=== PATIENT | male | born 1960 | race Caucasian/White ===

== ENCOUNTER 2017-01-08 10:30 | Emergency (ER) | payer OTHER ==
--- NOTE | ~2017-01-08 | EKG ---
PATIENT: THIAGO GIBSON UNIT #: [id number] Ventricular Rate: 84 BPM Atrial Rate: 84 BPM P-R Interval: 130 ms QRS Duration: 124 ms Q-T Interval: 410 ms QTC Calculation(Bezet): 484 ms P [place]: 39 degrees Calculated R [place]: 23 degrees Calculated T [place]: 17 degrees Diagnosis Line: Sinus rhythm with Premature atrial complexes Diagnosis Line: Right bundle branch block Diagnosis Line: Abnormal ECG Diagnosis Line: When compared with ECG of 13-DEC-2016 17:22, Diagnosis Line: Premature atrial complexes are now Present Diagnosis Line: Confirmed by MELANI ANGEL MD ([id number]) on Diagnosis Line: 01/15/2017 12:19:40 PM INTERPRETING MD: ADELINE
[~2017-01-08 10:30] MED LIST: ACETAMINOPHEN PO; AMOXICILLIN500 M1; AMOXICILLIN500 M1 PO; ASPIR-TRIN325 MG PO; ASPIRIN PO; ASPIRIN81 MG PO; AUGMENTIN PO; B-1100 MG PO; BACTRIM DS TABL1 TA2; BAYER ASPIRIN325 M1 PO; BENADRYL25 MG PO; BENTYL20 M1 PO; BENZONATATE PO; CARAFATE1 G PO; CATAPRES0.1 MG PO; CIPRO PO; CLONIDINE PO; COREG6.25 MG PO; FAMOTIDINE PO; FLEXERIL PO; FOLIC ACID1 MG PO; HYDROCHLOROTHIA25 MG PO; HYDROCODON-ACE1 EAC7 PO; IBUPROFEN800 MG PO; KETOPROFEN PO; LANTUS100 U/ML SQ; LANTUS100 UNITS/ SUBQ; LEVEMIR FL100 UNIT/1 SUBQ; LEVEMIR SUBQ; LEVEMIR100 U/ML; LEVEMIR100 U/ML SUBQ; LEVEMIR100 UNITS/ SUBQ; LIBRIUM PO; LIBRIUM25 MG PO; LISINOPRIL5 MG PO; LORTAB 10/500 T1 TAB PO; LORTAB 101 TAB 10/5 PO; LORTAB 5-325 M1 EACH PO; LORTAB 5/500 TA1 TA1 PO; LORTAB 5/500 TA1 TA2 PO; LORTAB 7.5-5001 TAB PO; LORTAB 7.51 TAB 7.5/ PO; MEDROL4 MG/DOSE- PO; MULTI VITAMIN1 EACH PO; MULTI-VITAMIN W1 TA1 PO; MULTI-VITAMIN1 EAC1 PO; MULTIVITAMIN1 UDCAP PO; NEXIUM PO; NICOTINE T1 PATCH .2 TOP; NICOTINE TRANSD14 MG EXT; NICOTINE TRANSD14 MG TOP; NORCO 10-325 TA1 TAB PO; NORCO 10/3251 TAB PO; NORVASC10 MG PO; NOVOLIN R100 UNITS/; NOVOLOG100 U/M1; NOVOLOG100 U/ML SUBQ; NOVOLOG100 UNITS/; PEPCID40 MG PO; PHENERGAN PO; PHENERGAN25 M1 PO; PHENERGAN25 MG PO; PRILOSEC PO; PRILOSEC20 MG PO; PROTONIX; PROTONIX PO; PROTONIX40 MG/BLIS PO; REGLAN; ROBAXIN 750750 M1 PO; SOLOSTAR INSULIN SUBQ; THERAPEUTIC M1 UDTA1 PO; THIAMINE HCL100 MG PO; VICODIN 5/500 T1 TAB PO; VIOKASE PO; VITAMIN D50000 UNIT PO; ZANTAC PO; ZITHROMAX PO; [UNRECOGNIZED DRUG - REMARK]
== END 2017-01-08 11:45 | disposition home or self-care (01) ==
LOC: SED 10:30
DX: I10 Essential (primary) hypertension (principal); F41.9 Anxiety disorder, unspecified; B19.20 Unspecified viral hepatitis C without hepatic coma; Z90.49 Acquired absence of other specified parts of digestive tract; F17.210 Nicotine dependence, cigarettes, uncomplicated; Z79.899 Other long term (current) drug therapy; Z88.8 Allergy status to other drugs, medicaments and biological substances
CPT/HCPCS: 93005; 99283

== ENCOUNTER 2017-01-22 15:49 | Inpatient (IN) | payer OTHER ==
--- NOTE | ~2017-01-22 | HP ---
Unit #: [id number] #: [id number] Patient: RACIEL GIBSON [id number] [address] [address] [id number] I MR#: [id number] NAME: RACIEL GIBSON ROOM: 327 Age: 56 Sex: M Admission Date: 01/22/2017 : 1960 Attending Physician: Haja Rasmussen M.D. Primary Care Physician: Raciel Desai M.D. HISTORY AND PHYSICAL CHIEF COMPLAINT Abdominal pain. HISTORY OF PRESENT ILLNESS Mr. Raciel Gibson is a 56-year-old male with significant past medical history of chronic pancreatitis, diabetes mellitus, hypertension, history of alcohol abuse, tobacco abuse. Patient came because of abdominal pain that started on Saturday and since then, he has not been able to eat. He was nauseous, was having some dry heaves but no vomiting. He came to ER for further evaluation and was admitted for possible pancreatitis and to rule out any malignancy. The patient was admitted in the hospital in May 2016. At that time, patient was advised to followup for pancreatic questionable mass. The patient had biopsy done in [facility]. I am not sure when and we will try to get the records. According to patient, he has not lost enough weight but per our records, he weighed 163 in June 2016 and now it is 153. The patient complains of nausea. He complains of abdominal pain, level of 8/10. According to him, it does hurt in the chest area too. He does not complain of fever but he had some chills and shaky a day before. No history of appetite loss, according to patient and no history of weight loss, according to patient. PAST MEDICAL HISTORY 1. Diabetes mellitus. 2. Hypertension. 3. Tobacco abuse. 4. Alcohol abuse history. 5. Chronic pancreatitis. HOME MEDICATIONS 1. NovoLog. 2. Protonix 40 mg daily. 3. Aspirin 325 mg daily. 4. Hydrochlorothiazide 25 mg daily. 5. Lantus 20 units subcutaneous at bedtime. 6. Norvasc 10 mg daily. 7. Robaxin 750 mg t.i.d. p.r.n. 8. Gabapentin 400 mg three times a day. SOCIAL HISTORY The patient does smoke and continue to smoke. Has been smoking for long period of time. He does have a history of heavy drinking in the past. According to him, he has cut down a lot. Last drink was two beers about three weeks ago. No history of alcohol or drug abuse. Unit #: [id number] #: [id number] Patient: RACIEL GIBSON FAMILY HISTORY The patient does have significant family history of malignancy. Mother had breast cancer and later on some lymph node involvement. Father had malignancy, although details are not known. According to patient, father had three malignancies. Sister with malignancy, again details are not known. REVIEW OF SYSTEMS As per history of presenting illness. PHYSICAL EXAMINATION GENERAL: The patient is lying in bed, does not seem to be in any respiratory distress. VITAL SIGNS: Blood pressure is 168/93, respiratory rate 18, pulse 96, temperature 98.7. HEENT: Head is normocephalic. Pale conjunctiva. NECK: Supple. CHEST: Fair air entry, decreased at the bases. CARDIOVASCULAR: S1, S2 positive. Regular rhythm. ABDOMEN: Tenderness is present in the epigastric area and right upper quadrant. Bowel sounds are positive. EXTREMITIES: Negative edema. CENTRAL NERVOUS SYSTEM: The patient is awake, alert, oriented x3. No focal neurological deficit. DIAGNOSTIC STUDIES LABORATORY: WBC 7.8, hemoglobin 14.8, hematocrit 42.4, and platelet count of 104,000. Sodium 130, potassium 3.3, chloride 91, BUN 6, creatinine 0.6. AST 90, ALT 55, alkaline phosphatase 438, total bilirubin 2.3. TSH is 1.12. Blood sugar 143. IMAGING: CT scan of the abdomen and pelvis done: Multiple liver lesions, possible metastatic disease. ASSESSMENT The patient is being admitted to telemetry unit with: 1. Abdominal pain. 2. Acute on chronic pancreatitis. 3. Multiple liver lesions, possible metastatic disease. 4. Hyponatremia. 5. Diabetes mellitus type 2. 6. History of alcohol abuse. 7. Hypertension. 8. Tobacco abuse. PLAN 1. Admit to telemetry unit. 2. Dr. White has been consulted. 3. Records from [facility] is being obtained. 4. IV fluids are being started. 5. Dr. Delcid has been consulted for hyponatremia. 6. Blood pressure medications are being adjusted because of uncontrolled hypertension. 7. Fluid restriction is being done to 1500 mL a day. 8. Please refer to progress note for further orders. Unit #: [id number] #: [id number] Patient: RACIEL GIBSON Dictated by Vivien Lawton TD: 01/23/2017 11:58 JOB #: [id number] HISTORY AND PHYSICAL X Sona Grey MD HISTORY AND PHYSICAL
--- NOTE | ~2017-01-22 | DS ---
Unit #: [id number] #: [id number] Patient: RACIEL GIBSON [id number] [address] [address] [id number] I MR#: [id number] NAME: RACIEL GIBSON ROOM: 327 Age: 56 Sex: M Admission Date: 01/22/2017 : 1960 Discharge Date: 01/30/2017 Attending Physician: Haja Rasmussen M.D. Primary Care Physician: Raciel Desai M.D. DISCHARGE SUMMARY DISCHARGE DIAGNOSES 1. Acute on chronic pancreatitis, stable to be discharged: Status post evaluation per GI. 2. Multiple liver lesions, questionable metastatic disease: Status post biopsy, status post evaluation per Hem/Onc. Stable to be discharged with outpatient followup with Hem/Onc tomorrow, on January 31, 2017. The appointment has already been set up. 3. History of hypertension, stable. 4. Diabetes, stable. 5. History of alcohol abuse. 6. Hyponatremia. DISCHARGE MEDICATIONS 1. Gabapentin 400 mg t.i.d. 2. Norvasc 10 mg daily. 3. Toprol XL 50 mg p.o. daily. 4. Sliding scale insulin. 5. Lantus 15 units subcu q. h.s. 6. Aspirin 325 p.o. daily which is currently on hold secondary to liver biopsy. Restart per primary care physician and Hematology after seen as an outpatient. 7. Protonix 40 mg daily. 8. Robaxin 750 mg p.o. t.i.d. 9. Augmentin 875 p.o. b.i.d. for five more days. DISPOSITION Going home. Outpatient followup with primary care physician in two to three days. Outpatient followup with Hem/Onc which is apparently scheduled for January 31, 2017. Also, outpatient followup with JULIA Interiano. CONSULTS DURING THIS HOSPITAL STAY 1. Dr. White - GI. 2. Dr. Baldemar Delcid - Nephrology. 3. Dr. Garcia - Hem/Onc. LABS, DIAGNOSTICS AND PROCEDURES DURING THIS HOSPITAL STAY Liver biopsy from January 29, 2017 - currently pending. CT of the chest without contrast - interval enlargement of the lobulated oval pulmonary nodule in the medial left lower lobe, now measuring 1.8 x 1.2 cm with adjacent patchy infiltrate along its posterior margin Unit #: [id number] #: [id number] Patient: RACIEL GIBSON suspicious for lung carcinoma. Questionable metastatic disease with mediastinal adenopathy. Biggest lesion 1.8 x 2.3 cm. Extensive hepatic lesion/metastases. Stable 3 mm nodule of the posterolateral right lower lobe. Could be an incidental granuloma. Enlargement of the pancreatic head, questionable pancreatitis versus underlying pancreatic mass. MRI of the abdomen - innumerable lesions throughout the enlarged liver indicating hepatic metastatic disease, diffuse osseous metastatic disease in the axial skeleton. Mass-like area of inflammation in one of the hepatic head and uncinate process measuring up to 5.3 cm concerning for a primary metastatic neoplasm. 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 Superior mesenteric vein confluence and occlusion of the central superior mesenteric vein and splenic vein. Extensive gastric collaterals are noted. HISTORY OF PRESENT HOSPITAL STAY Please refer to H and P done by my colleague for initial presentation on this gentleman. ACTIVE PROBLEMS AND DIAGNOSES Acute on chronic pancreatitis, now with pancreatic mass suspicious for pancreatic carcinoma with mets to the liver, status post liver lesion biopsy from yesterday: Follow up with the biopsy result. Follow up with hematology/oncology, Dr. Garcia. Appointment has been scheduled. Currently, patient tolerates p.o. diet. Stable to be discharged from GI and Hem/Onc standpoint. Liver lesions as above. Hypertension: Stable. Diabetes: Stable. History of alcohol abuse: Patient was counseled on several occasions of the importance of quitting alcohol. Lung mass, questionable mets versus primary: Again, follow up with Dr. Garcia as an outpatient. Follow up on liver lesion biopsies. Hyponatremia: Discharge date sodium 132, status post evaluation per nephrology. Continue fluid restriction. Discharge meds as above. Disposition as above. Dictated by... Haja Rasmussen M.D. PREETHI/lyndsey TD: 01/31/2017 07:30 JOB #: [id number] Unit #: [id number] #: [id number] Patient: RACIEL GIBSON DISCHARGE SUMMARY X Haja Rasmussen MD DISCHARGE SUMMARY
--- NOTE | ~2017-01-22 | CT2 ---
[facility] A Service of [facility] RADIOLOGY TEXT RESULTS PATIENT: RACIEL GIBSON LOCATION: A 327-01 : 60 UNIT #: [id number] AGE: [address]: Haja Rasmussen MD SEX: M ORDER DR: [id number] [address] [address] [id number] E MR#: [id number] Acc #: [id number] NAME: RACIEL GIBSON : 1960 SEX: M STUDY DATE/TIME: 01/22/2017 15:22 UNIT: SED ROOM: STUDY DESCRIPTION: CT Abd and Pelv W Cont Attending Physician: Harvinder Leyva M.D. Ordering Physician: Harvinder Leyva M.D. Primary Care Physician: Raciel Desai M.D. MEDICAL IMAGING REPORT This report is preliminary unless electronic signature is present. EXAM CT abdomen and pelvis with contrast, 01/22/2017 HISTORY Upper abdomen pain. Pancreatitis history. Upper abdomen pain, nausea and no appetite for 2 days. No bowel movement since yesterday. TECHNIQUE CT of the abdomen and pelvis performed with intravenous administration 100 mL Isovue 370. This CT exam was performed with one or more of the following radiation dose reduction techniques: automatic exposure control, adjustment of mA and/or kV according to patient size, and iterative reconstruction. COMPARISON CT examination 05/30/2016 and comparison MRI examination 07/26/2016 FINDINGS The lung bases show underlying emphysema. No acute pulmonary disease at the lung bases. No pleural effusions. Inferior heart pericardium unremarkable. The liver is abnormal. There are multiple too numerous to count rounded areas of hypodensity within the liver which are new compared to prior CT and MRI. Some of these may show some very subtle peripheral enhancement. They do not have a simple cystic interior. Largest of these measures on the order of about 12 mm. They are strongly concerning for extensive metastatic disease throughout the liver. The appearance is nonspecific. Permeative non neoplastic process could be considered. Primary multifocal hepatocellular carcinoma might be considered but I strongly favor metastatic disease. Patient is status post prior biliary intervention and there is chronic pneumobilia in the atrophic left hepatic lobe. The right hepatic lobe shows no biliary ductal dilatation. The [facility] A Service of [facility] RADIOLOGY TEXT RESULTS PATIENT: RACIEL GIBSON LOCATION: C3A 327-01 [facility] #: [id number] : 60 UNIT #: [id number] AGE: [address]: Haja Rasmussen MD SEX: M ORDER DR: patient is status post cholecystectomy. The liver appears enlarged compared to prior examination. It currently measures about 18.9 cm in craniocaudal extent, previously 16.6 cm. Spleen unremarkable. Pancreas is abnormal. Pancreatic tail appears relatively normal. There is generalized ill-defined parenchyma in region of pancreatic head and uncinate process. There are multiple coarse calcifications in this region as on prior study consistent with sequelae of chronic pancreatitis. There is haziness in the fat adjacent to the pancreatic head and uncinate process. Similar appearance on prior examination. Similar appearance on prior MRI. The appearance raises the possibility of acute on chronic pancreatitis. Certainly the haziness in the peripancreatic fat could be to some extent chronic in time course. There is no intra or peripancreatic fluid collection. There is stable mild prominence of the main pancreatic duct measuring up to about 3 mm in diameter. At the level of the uncinate process. There is a 1.2 cm hypodense focus. This was present on prior CT examination when it measured about 1.5 cm. It is of unclear etiology and significance. Sequelae of chronic pancreatitis could be considered. Edema related to the presumed acute on chronic pancreatitis could be considered. Small pancreatic neoplasm, particularly in light of the extensive hepatic lesions, is a consideration as well. The adrenal glands are unremarkable. Progression of left renal atrophy compared to the prior study, perhaps related to severe atherosclerotic disease in the proximal left renal artery. Left kidney otherwise unremarkable. The right kidney is normal. CT PELVIS: No inguinal adenopathy. Urinary bladder unremarkable. Prostate unremarkable. No pelvic adenopathy. There are small lymph nodes adjacent to the pancreatic head and uncinate process. These are slightly more conspicuous than on the prior examination. They are indeterminate and may be of an infectious or neoplastic nature. Attention at followup is recommended. The distal esophagus unremarkable. There are prominent gastric varices, more pronounced than on prior study. This is felt secondary to chronic occlusion of the splenic vein and critical narrowing if not occlusion of the splenoportal confluence. There are prominent collateral veins in the upper abdomen. The duodenum shows questionable mild mural thickening in the third portion of the duodenum adjacent to the pancreas. This may be a reflection of mild sympathetic inflammation due to the adjacent presumed pancreatitis. No pathologic duodenal dilatation. No gastric outlet obstruction. The remainder of small bowel is unremarkable. Appendix normal. Colon unremarkable. No colonic mass lesion is suggested. Atherosclerotic arterial calcifications. No aneurysm. The mesenteric vessels are patent. As noted, there is severe atherosclerotic disease in the proximal left renal artery. The bony structures show a stable central compression deformity at the L1 vertebral body without loss of height posteriorly. There is some mild anterior impression which is stable. No acute or aggressive-appearing bony abnormality. IMPRESSION [facility] A Service of [facility] RADIOLOGY TEXT RESULTS PATIENT: RACIEL GIBSON LOCATION: [facility] 327-01 : 60 UNIT #: [id number] AGE: [address]: Haja Rasmussen MD SEX: M ORDER DR: 1. This is an abnormal examination. Please see the complete dictation above for full details. Compared to most recent CT examination and MRI from May and July 2016 respectively, there are innumerable small hypodense lesions in the liver, some of which may have a subtle peripheral enhancement. They measure up to approximately 12 mm in diameter. All portions of the liver are involved. The appearance is strongly concerning for metastatic disease. Multifocal primary parasellar carcinoma not excluded but felt less likely. Non neoplastic permeative processes felt less likely. Given the extensive nature of these lesions, I believe they are probably amenable to characterization with percutaneous sampling despite their small size. 2. Pancreas is abnormal. There is chronic ill-defined anatomy of the pancreatic head and uncinate process with coarse calcifications. Similar appearance on prior study. This component of the pancreas appearance is felt to reflect chronic pancreatitis. There is some haziness and stranding in the fat adjacent to the pancreatic head and uncinate process. While some component may be chronic in time course the appearance suggests acute on chronic pancreatitis. Similar constellation of findings on prior CT and MRI. There is no peripancreatic or intrapancreatic fluid collection. Stable mild main pancreatic ductal prominence. 3. Indeterminate 1.2 cm hypodense focus in the uncinate process of pancreas. This was described on prior CT examination. It is marginally decreased in size from prior CT examination. It is indeterminate in appearance and the differential diagnosis could include sequelae of prior pancreatitis, recurrent edema due to acute component of pancreatitis, or relatively hypovascular pancreatic neoplasm. Hypovascular pancreatic neoplasm is a particular concern given the extensive hepatic abnormality. 4. 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 Resulting large upper abdominal varices and collateral veins between the spleen, central portal vein, and mesenteric veins. Similar appearance on prior study. 5. The third portion of duodenum may show some mild wall thickening. This is presumed secondary to adjacent pancreatitis. No gastric outlet obstruction and no focal duodenal abnormality. 6. Remainder of alimentary canal including appendix unremarkable. 7. Progression of moderate to marked left renal atrophy. This is favored to be a consequence of severe atherosclerotic disease and vascular insufficiency at level of the proximal left renal artery. 8. Emphysema. 9. Note is made of hepatic enlargement compared to prior examination. This may be a consequence of the extensive presumed metastatic tumor burden within the liver. 10. Post cholecystectomy with stable appearance of left hepatic lobe atrophy and pneumobilia indicating prior biliary ductal STS. [facility] A Service of [facility] RADIOLOGY TEXT RESULTS PATIENT: RACIEL GIBSON LOCATION: A 327-01 : 60 UNIT #: [id number] AGE: [address]: Haja Rasumssen MD SEX: M ORDER DR: instrumentation. Dictated by... Shelton Whittington M.D. THIS IS AN ELECTRONICALLY VERIFIED REPORT Shelton Whittington M.D. at 01/24/2017 4:25 PM ANAMARIA/dylon TD: 01/23/2017 03:30 JOB #: [id number] MEDICAL IMAGING REPORT
--- NOTE | ~2017-01-22 | CT55 ---
[facility] A Service of [facility] RADIOLOGY TEXT RESULTS PATIENT: RACIEL GIBSON LOCATION: [facility] 327-01 : 60 UNIT #: [id number] AGE: [address]: Haja Rasmussen MD SEX: M ORDER DR: [id number] [facility] [address] [place], [place] [address] [id number] I MR#: [id number] Acc #: [id number] NAME: RACIEL GIBSON : 1960 SEX: M STUDY DATE/TIME: 01/25/2017 16:42 UNIT: A [facility] ROOM: [facility] STUDY DESCRIPTION: CT Chest W Con Attending Physician: Haja Rasmussen M.D. Ordering Physician: Karl Garcia M.D. Primary Care Physician: Raciel Desai M.D. MEDICAL IMAGING REPORT This report is preliminary unless electronic signature is present EXAM CT chest without contrast. HISTORY Right-side chest pain for [address] exam was performed with one or more of the following radiation dose reduction techniques: automatic exposure control, adjustment of mA and/or kV according to patient size, and iterative reconstruction. FINDINGS CT chest with IV contrast demonstrates a mass in the medial left lower lobe measuring 1.8 cm x 1.2 cm, oval and slightly lobulated, with adjacent patchy infiltrate along its posterosuperior margin. This has apparently enlarged compared to CT 07/06/2016. A nodule in this region previously measured 7 mm x 5 mm. Minimal emphysema in the bilateral upper lobes. There is a 3 mm nodule in the posterolateral right lower lobe. This is stable compared to the prior CT. Enlarged lymph node inferior the vera, and anterior to the mid thoracic esophagus measuring 1.8 x 2.3 cm. Images of the upper abdomen demonstrate extensive hepatic metastases. Heterogeneous enlargement of the pancreatic head and uncinate process corresponds to findings on prior CT and MRI, and could be secondary to a pancreatic mass or focal pancreatitis. There are associated pancreatic calcifications. Left renal atrophy and compensatory hypertrophy of the right kidney. IMPRESSION 1. Interval enlargement of a lobulated oval pulmonary nodule in the medial left lower lobe now measuring 1.8 x 1.2 cm with adjacent patchy infiltrate along its posterosuperior margin. This raises suspicion of lung carcinoma. There is mediastinal adenopathy [facility] A Service of [facility] RADIOLOGY TEXT RESULTS PATIENT: RACIEL GIBSON LOCATION: C3A 327-01 : 60 UNIT #: [id number] AGE: [address]: Haja Rasmussen MD SEX: M ORDER DR: inferior to the vera and abutting the anterior margin of the mid thoracic esophagus measuring 1.8 x 2.3 cm, concerning for metastatic disease. 2. Extensive hepatic metastases as noted on prior recent CT and MRI. 3. Stable 3 mm nodule in the posterolateral right lower lobe could be an incidental granuloma. 4. Again demonstrated is heterogeneous enlargement of the pancreatic head which could be secondary to focal inflammatory pancreatitis versus underlying pancreatic mass. Please see MRI and CT performed recently. 5. Left renal atrophy and compensatory hypertrophy of the right kidney. Dictated by... Wilfrido Tenorio M.D. THIS IS AN ELECTRONICALLY VERIFIED REPORT Wilfrido Tenorio M.D. at 01/26/2017 10:41 PM CHAKA/aide TD: 01/26/2017 13:32 JOB #: [id number] MEDICAL IMAGING REPORT COPY
--- NOTE | ~2017-01-22 | CO ---
Unit #: [id number] #: [id number] Patient: RACIEL GIBSON [id number] [address] [address] [id number] I MR#: [id number] NAME: RACIEL GIBSON ROOM: 327 Age: 56 Sex: M Admission Date: 01/22/2017 : 1960 Attending Physician: Haja Rasmussen M.D. Primary Care Physician: Raciel Desai M.D. Consultation Date: 01/25/2017 CONSULTATION REPORT REQUESTING PHYSICIAN Consultation requested by Dr. Ar White. REASON FOR CONSULTATION Multiple liver lesions concerning for metastatic disease. HISTORY OF PRESENT ILLNESS Mr. Raciel Gibson is 56 years old with a history of chronic pancreatitis, diabetes mellitus, hypertension, and a previous history of alcohol abuse and current tobacco abuse, admitted to the hospital through the emergency room complaining of abdominal pain with difficulty eating. Following admission, he had a CT scan of the abdomen and pelvis followed by a MRI which has shown multiple liver lesions concerning for metastatic disease. CT scan, January 22, with numerous areas of hyperdensity of the liver which are new in comparison to prior scans, strongly concerning for (1) metastatic disease. He also had (2) pancreatic head and uncinate process similar to previous. A MRI of the abdomen and pelvis done January 23 showed once again multiple liver metastasis and a stable pancreatic head mass measuring 5.3 x 4.3 cm similar to prior MRI of July 26, 2016. Workup of the prior pancreatic mass included endoscopic ultrasound by Dr. Moreno as well as an ERCP. Endoscopic ultrasound was negative for malignancy. Mr. Gibson tells me he has had no recent changes in appetite and weight in recent months. He has also had a screening lung CT scan in June 2016 which was negative. PAST MEDICAL HISTORY 1. Type 2 diabetes mellitus. 2. Hypertension. 3. History of alcohol abuse. He has been sober for approximately four years. 4. History of pancreatitis. MEDICATIONS Medications on admission included: 1. NovoLog. 2. Protonix. 3. Aspirin. 4. Hydrochlorothiazide. 5. Lantus. 6. Norvasc. 7. Robaxin. 8. Gabapentin. FAMILY HISTORY Unit #: [id number] #: [id number] Patient: RACIEL GIBSON Notable for breast cancer in his mother and lymphoma. Father had cancer too as well as his sister. He has three brothers with which he is not particularly close. No children. Lives with his mother. SOCIAL HISTORY Smokes a pack to a pack and a half a day. He has now quit drinking alcohol. Before, he occasionally drank a beer. REVIEW OF SYSTEMS A 14-point review of systems taken. CONSTITUTIONAL: As discussed. EYES: Negative. EARS, NOSE, MOUTH, THROAT: Negative. CARDIOVASCULAR: Negative. RESPIRATORY: Chronic shortness of breathing without any recent change. GASTROINTESTINAL: Abdominal pain, lack of appetite as discussed. GENITOURINARY: Negative. ALLERGY: Negative. LYMPHATIC: Negative. SKIN: Negative. PSYCHIATRIC: Negative. PHYSICAL EXAMINATION GENERAL: He is a pleasant middle-aged man who looks a little older than stated age. Awake, alert, oriented x3. VITAL SIGNS: Temperature is 97.3, pulse is 69, respiratory rate 18, blood pressure 135/84, O2 saturations 99% on room air. HEENT: Shows pupils are equal, react well to light. No pallor, icterus. Mucous membranes are moist. NECK: No adenopathy, JVD, thyromegaly. CARDIOVASCULAR: First and second heart sounds are heard and regular with no murmurs, gallops, or rubs. LUNGS: Chest expansion is symmetric bilaterally. Normal breath sounds. ABDOMEN: Soft, nontender. Liver is palpable 4 inches above costal margin. Bowel sounds active. EXTREMITIES: Warm with good pulses. No edema, cyanosis, clubbing. NEUROLOGIC: He is awake, alert, oriented x3 without any focal findings. DIAGNOSTIC STUDIES LABORATORY: A complete metabolic panel shows a sodium of 131, BUN 6, creatinine 0.7. Alkaline phosphatase 383, bilirubin 1.9, albumin 3.4, magnesium is 1.7. CBC with a white count of 4.6, hemoglobin 13.9, platelet count 111,000. CA19-9 is 46. C-reactive protein is elevated at 10.2. IMAGING: CT scan of the abdomen and pelvis discussed as well as MRI which was reviewed and discussed. ASSESSMENT AND PLAN Mr. Raciel Gibson is 56 years old with a history of longstanding alcohol and tobacco usage, who has now been sober for four years, admitted with abdominal pain and anorexia. His CT scans of his abdomen and pelvis along with a MRI show no significant change in pancreatic mass which was evaluated and biopsied by endoscopic ultrasound on July 26, 2016, but has numerous liver lesions concerning for metastatic disease. He did have a screening CT scan of the chest for lung cancer in June [address] scan is certainly very concerning for metastatic malignancy of the liver. CA19-9 is marginally elevated. I discussed the likely Unit #: [id number] #: [id number] Patient: RACIEL GIBSON diagnosis with Mr. Gibson and agree with plans to get a CT-guided liver biopsy once he is off the aspirin. In addition, will get a CT scan of his chest to look for a pulmonary source of pulmonary primary give his long history of tobacco usage. Thank you for allowing me to participate in the care. Dictated by... Vivien Overton/katrina TD: 01/26/2017 14:46 JOB #: [id number] CONSULTATION REPORT X Karl Garcia MD X CONSULTATION REPORT
--- NOTE | ~2017-01-22 | CO ---
Unit #: [id number] #: [id number] Patient: RACIEL GIBSON [id number] [address] [address] [id number] I MR#: [id number] NAME: RACIEL GIBSON ROOM: 327 Age: 56 Sex: M Admission Date: 01/22/2017 : 1960 Attending Physician: Haja Rasmussen M.D. Primary Care Physician: Raciel Desai M.D. Consultation Date: 01/23/2017 CONSULTATION REPORT REASON FOR CONSULT Hyponatremia. Thank you very much for asking us to see this patient in consultation. HISTORY OF PRESENT ILLNESS Mr. Gibson is a 56-year-old male, who presented to the hospital here with complaints of abdominal pain, again with nausea and some dry heaves. He has been drinking water, but not getting a lot of other A and E's, although he states he has been taking his medications. The patient was noted upon presentation to have a sodium of 125. Because of this, I was asked to see the patient. In reviewing the patient's records, he actually had a sodium of 126 in November and somewhere either at that time or after that, he was told to stop his hydrochlorothiazide and he says he has been off it for a couple weeks and Norvasc was added to his blood pressure regimen. He states he has had some intermittent sodiums low in the past as well and was told just to eat more salt. He does have a history of chronic pancreatitis and EtOH abuse, although he says he has not had anything to drink except for a couple pf beers about 2 weeks ago. Upon his presentation here, he did undergo CT scan of the abdomen and pelvis, and significantly he has some liver lesions and that is currently being worked up. PAST MEDICAL HISTORY History of chronic pancreatitis, history of hypertension, history of diabetes mellitus, ETOH abuse in the past, history of hepatitis B, history of gastroesophageal reflux disease. He is status post cholecystectomy and status post biliary stents. SOCIAL HISTORY He is a positive smoker, again he says he stopped drinking alcohol. MEDICATIONS At home, he was on HCTZ, but he says he has stopped that. He is on [place], aspirin 325 a day, Protonix daily, Norvasc 10 mg a day, insulin and gabapentin 400 mg t.i.d. REVIEW OF SYSTEMS He denies any visual problems, sinus problems, cough, hemoptysis, sore throat, difficulty swallowing, neck pain or neck stiffness. No chest pain, chest heaviness, or palpitations. No severe shortness of breath. He has had abdominal pain, nausea, dry heaves. He denies any urinary symptoms, starting or stopping burning. He denies any lower extremity swelling. Denies any recent seizures, strokes or skin rashes. Unit #: [id number] #: [id number] Patient: RACIEL GIBSON He is allergic to TRAVIS inhibitors, causing lip swelling, he states. FAMILY HISTORY Noncontributory. PHYSICAL EXAMINATION GENERAL: He is alert. VITAL SIGNS: Temperature 98.4, pulse 86 to 97, blood pressure 161-195/82-106. HEENT: Normocephalic and atraumatic. Pupils are equal, round, and reactive to light. Extraocular muscles are intact. Hearing appears to be normal. Mouth clear. No erythema. No exudate. NECK: Supple. No JVD. No adenopathy. CARDIAC: He is without a rub. No S3 or S4. Sounds regular. LUNGS: Clear bilaterally. No wheezes, rhonchi, or rales. ABDOMEN: Nontender currently. No rebound or guarding. Bowel sounds positive. EXTREMITIES: He has no lower extremity swelling. His pulses are intact in lower extremities. JOINTS: No joint pain or joint swelling. SKIN: No rashes. NEUROLOGIC: Appears to be intact motor and sensory grossly. : Deferred. DIAGNOSTIC STUDIES LABORATORY RESULTS: Upon admission showed a sodium of 125, was up to 130 this morning, potassium is 3.3, chloride is 91, bicarb is 24, BUN is 6, creatinine 0.6, glucose 153, calcium is 9.6, albumin is 3.8, bilirubin is 2.3. He has increased liver function tests. TSH 1.12. Cortisol is 8. Hemoglobin is 14.8, white count 7800, platelets 104,000. Urine sodium is 70. Urine osmolality is 337. UA shows specific gravity of 1.005, no protein, no rbc's, no wbc's. He did have 1+ ketones and some mild glucose. On 12/13/2016, sodium was 126. ASSESSMENT AND PLAN 1. Hyponatremia. This patient has either hypovolemic versus euvolemic hyponatremia. Certainly his hydrochlorothiazide could have played a role in his hyponatremia, but he is off that now. We will keep him off thiazide and diuretics in the future. His urine osmolality is not consistent with psychogenic polydipsia. He certainly could have a SIADH type picture versus his volume depletion versus other. I agree with normal saline for now. His cortisol is borderline low, but not significantly. His TSH is normal. We will keep him on p.o. fluid restriction, but change to 1500 mL per day and continue to follow. 2. Hypertension. Blood pressure is elevated. I would again discontinue HCTZ, which was restarted here and obviously I cannot use an angiotensin converting enzyme inhibitor or angiotensin receptor jacquelin due to his allergy. We will add a beta-jacquelin to his calcium channel jacquelin and we will follow. 3. Liver lesions workup per primary. 4. Diabetes mellitus. The patient did have some ketones in his urine. I doubt if it was diabetic ketosis and may be starvation ketosis. 5. Hypokalemia. We will replace. Recheck in a.m. with magnesium and phosphorus. Unit #: [id number] #: [id number] Patient: RACIEL GIBSON Dictated by... Vivien Roman/shira TD: 01/24/2017 02:03 JOB #: [id number] CONSULTATION REPORT X Aryan Delcid MD X CONSULTATION REPORT
--- NOTE | ~2017-01-22 | XA60 ---
[facility] A Service of [facility] & [facility] RADIOLOGY TEXT RESULTS PATIENT: RACIEL GIBSON LOCATION: [facility] 327-01 : [birth year] UNIT #: [id number] AGE: [address]: Haja Rasmussen MD SEX: M ORDER DR: [id number] [place] [id number] [facility]. [place], [place] [address] [id number] I MR#: [id number] Acc #: [id number] NAME: RACIEL GIBSON : 1960 SEX: M STUDY DATE/TIME: 01/29/2017 12:10 UNIT: A [facility] ROOM: [facility] STUDY DESCRIPTION: XA BX Perc Liver Attending Physician: Haja Rasmussen M.D. Ordering Physician: Ar White M.D. Primary Care Physician: Raciel Desai M.D. MEDICAL IMAGING REPORT This report is preliminary unless electronic signature is present PROCEDURE Ultrasound-guided liver mass biopsy INDICATIONS 56-year-old male with history of innumerable liver masses suspicious for malignancy. Biopsy was requested. Medications: IV Versed and Fentanyl utilized for conscious sedation. Conscious sedation time was monitored by appropriately credentialed radiology nursing staff. The risks, benefits, and alternatives procedure discussed with the patient and informed consent was obtained. In the procedure room a time-out was performed confirming correct patient and procedure. All elements of maximum sterile-barrier technique utilized according guidelines appropriate for the procedure. TECHNIQUE/FINDINGS Ultrasound evaluation of the liver was performed. A large hypodense mass in the superficial aspect of the liver was chosen. The overlying skin was prepped and draped in the usual sterile fashion. 1% lidocaine utilized to anesthetize the skin and underlying subcutaneous tissues. Next, under ultrasound guidance 3 passes were made in the mass with an 18-gauge needle and 3 core biopsies were obtained and sent to pathology. Needle was removed and a sterile dressing was applied. No immediate complications. IMPRESSION Technically successful ultrasound-guided liver mass biopsy. Dictated by... Po Faria M.D. THIS IS AN ELECTRONICALLY VERIFIED REPORT [facility] A Service of [facility] & [facility] RADIOLOGY TEXT RESULTS PATIENT: RACIEL GIBSON LOCATION: [facility] 327-01 : [birth year] UNIT #: [id number] AGE: [address]: Haja Rasmussen MD SEX: M ORDER DR: Po Faria M.D. at 01/31/2017 7:33 AM Willa TD: 01/30/2017 07:01 JOB #: [id number] MEDICAL IMAGING REPORT COPY
--- NOTE | ~2017-01-22 | MR2 ---
[facility] A Service of [facility] & [facility] RADIOLOGY TEXT RESULTS PATIENT: RACIEL GIBSON LOCATION: [facility] 327-01 : 60 UNIT #: [id number] AGE: [address]: Haja Rasmussen MD SEX: M ORDER DR: [id number] [facility] [address] [facility]. [place], [place] [address] [id number] I MR#: [id number] Acc #: [id number] NAME: RACIEL GIBSON : 1960 SEX: M STUDY DATE/TIME: 01/23/2017 22:22 UNIT: A [facility] ROOM: [facility] STUDY DESCRIPTION: MR Abdomen WWo Cont Attending Physician: Haja Rasmussen M.D. Ordering Physician: Haja Rasmussen M.D. Primary Care Physician: Raciel Desai M.D. MRI CENTER REPORT This report is preliminary unless electronic signature is present. INDICATION Abnormal CT scan. Liver mass. Right upper quadrant abdominal pain and nausea. History of pancreatitis with pseudocyst formation. TECHNIQUE Multiplanar MRI of the abdomen with and without IV contrast (15 mL MultiHance IV contrast). COMPARISON CT abdomen and pelvis dated 01/22/2017 and MR abdomen dated 07/26/2016. FINDINGS The liver is enlarged measuring up to 18.0-19.0 cm in length. There are innumerable lesions throughout the liver occupying a majority of the liver parenchyma. The lesions are hyperintense on T2-weighted sequences and hypointense on the T1-weighted sequences. There are a few areas of T1 hyperintensity which likely reflects some hemorrhage. Following administration of contrast, these lesions are all hypovascular and indicative of innumerable hepatic metastases. An index lesion in the anterior right hepatic lobe measures 1.5 cm. The lesions all measure less than 2.0 cm in individual diameter. Patient has atrophy of the left hepatic lobe which is unchanged from prior studies. The intrahepatic bile ducts are within normal limits. There is borderline enlargement of the mid common bile duct measuring 0.8 cm. The hepatic vasculature is patent. There is focal mass-like area of inflammation in the pancreatic head/uncinate process. This area is poorly defined however measures approximately 5.3 x 4.3 cm. This area is fairly similar to the prior MRI of 07/26/2016. There is focal stricture of the pancreatic duct in this area. While this is concerning for a primary pancreatic neoplasm, it is STS. [facility] A Service of [facility] & [facility] RADIOLOGY TEXT RESULTS PATIENT: RACIEL GIBSON LOCATION: [facility] 327-01 : 60 UNIT #: [id number] AGE: [address]: Haja Rasmussen MD SEX: M ORDER DR: unusual that the area is not significantly changed in size in the time interval. There is occlusion of the superior mesenteric vein and splenic vein. There are extensive gastric collaterals. There is generalized atrophy of the pancreatic tail which is similar to prior exams. There is some borderline enlarged periportal lymph nodes, however, they are not pathologically enlarged. The adrenal glands are normal. The left kidney is atrophic. Right kidney is normal. The bowel is not dilated. There are multiple areas of abnormal signal throughout the axial skeleton consistent with metastatic disease. No pathologic fractures. IMPRESSION 1. Development of innumerable lesions throughout the enlarged liver indicative of hepatic metastatic disease. 2. Diffuse osseous metastatic disease in the axial skeleton. 3. Masslike area of inflammation involving the pancreatic head and uncinate process measuring up to 5.3 cm. This is concerning for a primary pancreatic neoplasm, particularly given the hepatic metastatic disease. However, the overall appearance of the pancreatic head and uncinate process is not significantly changed from the exam from July 2016. It would be unusual for the primary lesion to be stable with development of diffuse metastatic disease, therefore, focal pancreatitis should also be considered. Consider an ERCP with biopsy to evaluate the pancreas. Patient may also benefit from liver biopsy to determine etiology of the hepatic metastatic disease. 4. 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 Extensive gastric collaterals are noted. STAT * RESULT Dictated by... Jeremie Estrella M.D. THIS IS AN ELECTRONICALLY VERIFIED REPORT Jeremie Estrella M.D. at 01/24/2017 10:57 AM RASHAWN/milton TD: 01/24/2017 08:23 JOB #: [id number] MRI CENTER REPORT COPY
[2017-01-22 15:15] LABS: POC - CREATININE 0.84 mg/dL (0.64-1.27); POC - GFR >60.0 mL/min (>60)
[2017-01-22 15:22] LABS: BASOPHIL% 0.7 % (0-2.5); EOSINOPHIL% 0.3 % (0.0-7.0); HEMATOCRIT 45.8 % (38.0-50.0); LYMPHOCYTE# 0.7 X10e3 (1.0-3.5); LYMPHOCYTE% 9.3 % (17.0-45.0); MEAN CELL VOLUME 97.3 FL (83-96); MEAN CORPUSCULAR HGB CONC 34.9 g/dL (30-36); MEAN PLATELET VOLUME 7.6 FL (6.5-11.5); MONOCYTE# 0.9 X10e3 (0-1.0); MONOCYTE% 13.1 % (3.0-12.0); NEUTROPHIL# 5.5 X10e3 (1.5-7.1); NEUTROPHIL% 76.6 % (40-75); PLATELET COUNT 116 X10e3 (140-420); RED CELL DISTRIBUTION WIDTH 15.8 % (11.0-15.5); WHITE BLOOD COUNT 7.1 X10e3 (4.0-10.5)
[2017-01-22 15:31] LABS: DIFF IND NO
[2017-01-22 15:48] LABS: ALBUMIN SERUM 4.4 g/dL (3.5-5.0); ALKALINE PHOSPHATASE 528 U/L (32-92); ALT (SGPT) 63 U/L (10-40); AMYLASE 31 U/L (0-46); AST (SGOT) 126 U/L (10-42); BILIRUBIN,INDIRECT 1.9 mg/dL (0.0-0.9); BILIRUBIN,TOTAL 2.9 mg/dL (0.2-2.0); BLOOD UREA NITROGEN 6 mg/dL (9-23); CALCIUM SERUM 9.7 mg/dL (8.4-10.2); CARBON DIOXIDE 23 mmol/L (22-31); CHLORIDE 86 mmol/L (100-111); CREATININE SERUM 0.6 mg/dL (0.6-1.4); GLOM FILT RATE Estimated ABOVE60 mL/min (>60); GLUCOSE FASTING 214 mg/dL (70-110); LIPASE 91 U/L (22-51); POTASSIUM 4.6 mmol/L (3.5-5.1); PROTEIN TOTAL SERUM 8.3 g/dL (6.0-8.3)
[2017-01-22 15:49] LABS: SODIUM 125 mmol/L (135-145)
[2017-01-22 17:11] LABS: URINE APPEARANCE CLEAR; URINE BILIRUBIN NEG (NEG); URINE COLOR YELLOW; URINE GLUCOSE 50 MG/DL (NORM); URINE KETONE 1+ (NEG); URINE LEUKOCYTE ESTERASE NEG (NEG); URINE NITRATE NEG (NEG); URINE PH 6.5 (5-8); URINE PROTEIN NEG (NEG); URINE SOURCE CLEAN CATCH; URINE SPECIFIC GRAVITY <=1.005 (1.003-1.035); URINE UROBILINOGEN 0.2 MG/DL (NORM)
[2017-01-22 17:16] LABS: MICRO INDICATED? NO; URINE BLOOD NEG (NEG)
[2017-01-22] MEDS ORDERED: GABAPENTIN400 M2 PO (22:22)
[2017-01-22] MEDS ORDERED: ROBAXIN 750750 M1 DOB (22:22)
[2017-01-23 00:11] LABS: SODIUM URINE RANDOM 70 mmol/L
[2017-01-23 00:29] LABS: OSMOLALITY,URINE 337 mOsmo/kg (250-900)
[2017-01-23 05:12] LABS: BASOPHIL% 0.3 % (0-2.5); EOSINOPHIL% 0.4 % (0.0-7.0); HEMATOCRIT 42.4 % (38.0-50.0); HEMOGLOBIN 14.8 gm/dL (13.0-16.0); LYMPHOCYTE# 0.8 X10e3 (1.0-3.5); LYMPHOCYTE% 10.1 % (17.0-45.0); MEAN CELL VOLUME 95.6 FL (83-96); MEAN CORPUSCULAR HEMOGLOBIN 33.4 PG (28-34); MONOCYTE# 0.9 X10e3 (0-1.0); MONOCYTE% 12.2 % (3.0-12.0); PLATELET COUNT 104 X10e3 (140-420); RED BLOOD COUNT 4.43 X10e (3.90-5.60); RED CELL DISTRIBUTION WIDTH 16.2 % (11.0-15.5); WHITE BLOOD COUNT 7.8 X10e3 (4.0-10.5)
[2017-01-23 05:31] LABS: DIFF IND NO
[2017-01-23 06:25] LABS: THYROID STIMULATING HORMONE 1.12 uIU/ml (0.34-5.60)
[2017-01-23 06:37] LABS: ALBUMIN SERUM 3.8 g/dL (3.5-5.0); ALKALINE PHOSPHATASE 438 U/L (32-92); ALT (SGPT) 55 U/L (10-40); AMYLASE 22 U/L (0-46); AST (SGOT) 90 U/L (10-42); BILIRUBIN,TOTAL 2.3 mg/dL (0.2-2.0); BLOOD UREA NITROGEN 6 mg/dL (9-23); CALCIUM SERUM 9.6 mg/dL (8.4-10.2); CARBON DIOXIDE 24 mmol/L (22-31); CHLORIDE 91 mmol/L (100-111); CREATININE SERUM 0.6 mg/dL (0.6-1.4); GLOM FILT RATE Estimated ABOVE60 mL/min (>60); GLUCOSE FASTING 153 mg/dL (70-110); LIPASE 43 U/L (22-51); POTASSIUM 3.3 mmol/L (3.5-5.1); PROTEIN TOTAL SERUM 6.8 g/dL (6.0-8.3); SODIUM 130 mmol/L (135-145)
[2017-01-24 05:44] LABS: HEMATOCRIT 41.1 % (38.0-50.0); HEMOGLOBIN 14.5 gm/dL (13.0-16.0); MEAN CELL VOLUME 96.1 FL (83-96); MEAN CORPUSCULAR HEMOGLOBIN 33.9 PG (28-34); MEAN CORPUSCULAR HGB CONC 35.3 g/dL (30-36); MEAN PLATELET VOLUME 7.6 FL (6.5-11.5); RED BLOOD COUNT 4.27 X10e (3.90-5.60); RED CELL DISTRIBUTION WIDTH 15.9 % (11.0-15.5); WHITE BLOOD COUNT 5.7 X10e3 (4.0-10.5)
[2017-01-24 06:15] LABS: MAGNESIUM 1.5 mg/dL (1.6-3.0)
[2017-01-24 06:18] LABS: ALBUMIN SERUM 3.6 g/dL (3.5-5.0); ALKALINE PHOSPHATASE 412 U/L (32-92); ALT (SGPT) 50 U/L (10-40); AMYLASE 13 U/L (0-46); AST (SGOT) 70 U/L (10-42); BILIRUBIN,TOTAL 1.9 mg/dL (0.2-2.0); BLOOD UREA NITROGEN 7 mg/dL (9-23); BUN/CREATININE RATIO 11.66; CARBON DIOXIDE 26 mmol/L (22-31); CHLORIDE 93 mmol/L (100-111); CREATININE SERUM 0.6 mg/dL (0.6-1.4); GLOM FILT RATE Estimated ABOVE60 mL/min (>60); GLUCOSE FASTING 156 mg/dL (70-110); LIPASE 25 U/L (22-51); POTASSIUM 3.7 mmol/L (3.5-5.1); PROTEIN TOTAL SERUM 6.7 g/dL (6.0-8.3); SODIUM 127 mmol/L (135-145)
[2017-01-25 06:11] LABS: HEMATOCRIT 40.3 % (38.0-50.0); HEMOGLOBIN 13.9 gm/dL (13.0-16.0); MEAN CELL VOLUME 97.3 FL (83-96); MEAN CORPUSCULAR HEMOGLOBIN 33.5 PG (28-34); MEAN CORPUSCULAR HGB CONC 34.5 g/dL (30-36); MEAN PLATELET VOLUME 7.4 FL (6.5-11.5); RED BLOOD COUNT 4.14 X10e (3.90-5.60); RED CELL DISTRIBUTION WIDTH 15.7 % (11.0-15.5); WHITE BLOOD COUNT 4.6 X10e3 (4.0-10.5)
[2017-01-25 07:20] LABS: ALBUMIN SERUM 3.4 g/dL (3.5-5.0); ALKALINE PHOSPHATASE 383 U/L (32-92); ALT (SGPT) 46 U/L (10-40); AST (SGOT) 75 U/L (10-42); BILIRUBIN,TOTAL 1.9 mg/dL (0.2-2.0); BLOOD UREA NITROGEN 6 mg/dL (9-23); BUN/CREATININE RATIO 8.57; CALCIUM SERUM 8.9 mg/dL (8.4-10.2); CARBON DIOXIDE 26 mmol/L (22-31); CHLORIDE 95 mmol/L (100-111); CREATININE SERUM 0.7 mg/dL (0.6-1.4); GLOM FILT RATE Estimated ABOVE60 mL/min (>60); GLUCOSE FASTING 113 mg/dL (70-110); MAGNESIUM 1.7 mg/dL (1.6-3.0); POTASSIUM 3.9 mmol/L (3.5-5.1); PROTEIN TOTAL SERUM 6.6 g/dL (6.0-8.3); SODIUM 131 mmol/L (135-145); URIC ACID 3.2 mg/dL (2.6-7.2)
[2017-01-26 05:46] LABS: HEMATOCRIT 38.1 % (38.0-50.0); HEMOGLOBIN 13.1 gm/dL (13.0-16.0); MEAN CELL VOLUME 97.1 FL (83-96); MEAN CORPUSCULAR HEMOGLOBIN 33.3 PG (28-34); MEAN CORPUSCULAR HGB CONC 34.3 g/dL (30-36); MEAN PLATELET VOLUME 7.4 FL (6.5-11.5); RED BLOOD COUNT 3.92 X10e (3.90-5.60); RED CELL DISTRIBUTION WIDTH 15.7 % (11.0-15.5); WHITE BLOOD COUNT 3.9 X10e3 (4.0-10.5)
[2017-01-26 06:27] LABS: ALBUMIN SERUM 3.3 g/dL (3.5-5.0); ALKALINE PHOSPHATASE 440 U/L (32-92); ALT (SGPT) 50 U/L (10-40); AST (SGOT) 72 U/L (10-42); BLOOD UREA NITROGEN 9 mg/dL (9-23); BUN/CREATININE RATIO 11.25; CALCIUM SERUM 8.9 mg/dL (8.4-10.2); CARBON DIOXIDE 29 mmol/L (22-31); CHLORIDE 96 mmol/L (100-111); CREATININE SERUM 0.8 mg/dL (0.6-1.4); GLOM FILT RATE Estimated ABOVE60 mL/min (>60); GLUCOSE FASTING 301 mg/dL (70-110); MAGNESIUM 1.8 mg/dL (1.6-3.0); PROTEIN TOTAL SERUM 5.8 g/dL (6.0-8.3); SODIUM 132 mmol/L (135-145)
[2017-01-27 05:59] LABS: HEMATOCRIT 37.9 % (38.0-50.0); HEMOGLOBIN 12.9 gm/dL (13.0-16.0); MEAN CELL VOLUME 97.7 FL (83-96); MEAN CORPUSCULAR HEMOGLOBIN 33.3 PG (28-34); MEAN PLATELET VOLUME 7.7 FL (6.5-11.5); RED BLOOD COUNT 3.87 X10e (3.90-5.60); RED CELL DISTRIBUTION WIDTH 15.3 % (11.0-15.5); WHITE BLOOD COUNT 4.6 X10e3 (4.0-10.5)
[2017-01-27 06:52] LABS: ALBUMIN SERUM 3.6 g/dL (3.5-5.0); ALKALINE PHOSPHATASE 426 U/L (32-92); ALT (SGPT) 53 U/L (10-40); AST (SGOT) 75 U/L (10-42); BILIRUBIN,TOTAL 1.1 mg/dL (0.2-2.0); BLOOD UREA NITROGEN 7 mg/dL (9-23); CALCIUM SERUM 9.1 mg/dL (8.4-10.2); CARBON DIOXIDE 28 mmol/L (22-31); CHLORIDE 95 mmol/L (100-111); CREATININE SERUM 0.7 mg/dL (0.6-1.4); GLOM FILT RATE Estimated ABOVE60 mL/min (>60); GLUCOSE FASTING 226 mg/dL (70-110); POTASSIUM 3.8 mmol/L (3.5-5.1); PROTEIN TOTAL SERUM 6.5 g/dL (6.0-8.3); SODIUM 131 mmol/L (135-145)
[2017-01-28 05:59] LABS: HEMATOCRIT 37.5 % (38.0-50.0); HEMOGLOBIN 13.1 gm/dL (13.0-16.0); MEAN CELL VOLUME 96.2 FL (83-96); MEAN CORPUSCULAR HEMOGLOBIN 33.5 PG (28-34); MEAN CORPUSCULAR HGB CONC 34.8 g/dL (30-36); MEAN PLATELET VOLUME 7.7 FL (6.5-11.5); RED BLOOD COUNT 3.9 X10e (3.90-5.60); RED CELL DISTRIBUTION WIDTH 15.4 % (11.0-15.5)
[2017-01-28 06:23] LABS: INR 1.1; PARTIAL THROMBOPLASTIN TIME 29.3 SECONDS (23.5-31.3); PROTHROMBIN TIME (PATIENT) 11.2 SECONDS (9.6-11.5)
[2017-01-28 07:06] LABS: ALBUMIN SERUM 3.3 g/dL (3.5-5.0); ALKALINE PHOSPHATASE 455 U/L (32-92); ALT (SGPT) 55 U/L (10-40); AST (SGOT) 77 U/L (10-42); BILIRUBIN,TOTAL 1.5 mg/dL (0.2-2.0); BLOOD UREA NITROGEN 7 mg/dL (9-23); CALCIUM SERUM 9.3 mg/dL (8.4-10.2); CARBON DIOXIDE 29 mmol/L (22-31); CHLORIDE 99 mmol/L (100-111); CREATININE SERUM 0.7 mg/dL (0.6-1.4); GLOM FILT RATE Estimated ABOVE60 mL/min (>60); GLUCOSE FASTING 92 mg/dL (70-110); POTASSIUM 3.9 mmol/L (3.5-5.1); PROTEIN TOTAL SERUM 5.9 g/dL (6.0-8.3); SODIUM 136 mmol/L (135-145)
[2017-01-29 07:33] LABS: BASOPHIL# 0.1 X10e3 (0-0.3); BASOPHIL% 0.8 % (0-2.5); EOSINOPHIL# 0.1 X10e3 (0-0.7); EOSINOPHIL% 1.9 % (0.0-7.0); HEMATOCRIT 37.6 % (38.0-50.0); HEMOGLOBIN 12.9 gm/dL (13.0-16.0); LYMPHOCYTE# 1.3 X10e3 (1.0-3.5); LYMPHOCYTE% 20.9 % (17.0-45.0); MEAN CELL VOLUME 97.2 FL (83-96); MEAN CORPUSCULAR HEMOGLOBIN 33.5 PG (28-34); MEAN CORPUSCULAR HGB CONC 34.4 g/dL (30-36); MEAN PLATELET VOLUME 8.2 FL (6.5-11.5); MONOCYTE# 1.5 X10e3 (0-1.0); MONOCYTE% 23.4 % (3.0-12.0); NEUTROPHIL# 3.4 X10e3 (1.5-7.1); PLATELET COUNT 126 X10e3 (140-420); RED BLOOD COUNT 3.87 X10e (3.90-5.60); WHITE BLOOD COUNT 6.3 X10e3 (4.0-10.5)
[2017-01-29 07:39] LABS: DIFF IND YES
[2017-01-29 07:41] LABS: INR 1.1; PARTIAL THROMBOPLASTIN TIME 31.1 SECONDS (23.5-31.3); PROTHROMBIN TIME (PATIENT) 11.4 SECONDS (9.6-11.5)
[2017-01-29 08:01] LABS: BLOOD UREA NITROGEN 5 mg/dL (9-23); BUN/CREATININE RATIO 7.14; CALCIUM SERUM 9.2 mg/dL (8.4-10.2); CARBON DIOXIDE 25 mmol/L (22-31); CHLORIDE 100 mmol/L (100-111); CREATININE SERUM 0.7 mg/dL (0.6-1.4); GLOM FILT RATE Estimated ABOVE60 mL/min (>60); GLUCOSE FASTING 71 mg/dL (70-110); POTASSIUM 3.7 mmol/L (3.5-5.1); SODIUM 135 mmol/L (135-145)
[2017-01-29 08:42] LABS: PLATELET ESTIMATE NORMAL (NORMAL)
[2017-01-30 08:52] LABS: BLOOD UREA NITROGEN 6 mg/dL (9-23); BUN/CREATININE RATIO 8.57; CALCIUM SERUM 9.1 mg/dL (8.4-10.2); CARBON DIOXIDE 27 mmol/L (22-31); CHLORIDE 99 mmol/L (100-111); CREATININE SERUM 0.7 mg/dL (0.6-1.4); GLOM FILT RATE Estimated ABOVE60 mL/min (>60); GLUCOSE FASTING 115 mg/dL (70-110); POTASSIUM 3.8 mmol/L (3.5-5.1); SODIUM 132 mmol/L (135-145)
[2017-01-30] MEDS ORDERED: TOPROL XL 50 MG50 MG PO (19:36)
[2017-01-30] MEDS ORDERED: AUGMENTIN875 M1 PO (19:40)
[2017-01-30] MEDS ORDERED: PERCOCET 51 UDTAB 5/ PO (19:41)
== END 2017-01-30 21:07 | disposition home or self-care (01) | DRG 439 ==
LOC: SED 15:49 → C3A PCU 17:36
PROVIDERS: Emergency Medicine; Hospitalist; Internal Medicine; Internal Medicine Hematology; Internal Medicine Nephrology; Radiology Diagnostic Radiology
PROC: 0FB03ZX Excision of Liver, Percutaneous Approach, Diagnostic (ICD-10-PCS; principal; 2017-01-29)
DX: K85.20 Alcohol induced acute pancreatitis without necrosis or infection (principal); E87.1 Hypo-osmolality and hyponatremia; C78.7 Secondary malignant neoplasm of liver and intrahepatic bile duct; K86.0 Alcohol-induced chronic pancreatitis; E11.9 Type 2 diabetes mellitus without complications; I10 Essential (primary) hypertension; F17.210 Nicotine dependence, cigarettes, uncomplicated; Z79.4 Long term (current) use of insulin; Z79.82 Long term (current) use of aspirin; F10.10 Alcohol abuse, uncomplicated; K21.9 Gastro-esophageal reflux disease without esophagitis; Z90.49 Acquired absence of other specified parts of digestive tract
CPT/HCPCS: 36415; 71260; 74177; 74183; 76942; 80048; 80053; 80076; 81003; 82105; 82150; 82378; 82533; 82565; 82947; 83036; 83690; 83735; 83935; 84100; 84300; 84443; 84550; 85025; 85027; 85610; 85730; 86140; 86301; 88307; 96374; 96375; 99285; A9577; J0295; J0360; J1170; J1650; J1815; J2250; J2405; J3010; J3475; Q9967

== ENCOUNTER 2017-02-07 15:18 | Emergency (ER) | payer OTHER ==
[2017-02-07 14:16] LABS: BASOPHIL# 0.1 X10e3 (0-0.3); BASOPHIL% 0.9 % (0-2.5); EOSINOPHIL# 0.1 X10e3 (0-0.7); EOSINOPHIL% 0.9 % (0.0-7.0); HEMATOCRIT 37.6 % (38.0-50.0); HEMOGLOBIN 12.8 gm/dL (13.0-16.0); LYMPHOCYTE# 1.2 X10e3 (1.0-3.5); LYMPHOCYTE% 12.9 % (17.0-45.0); MEAN CELL VOLUME 97.1 FL (83-96); MEAN PLATELET VOLUME 8.3 FL (6.5-11.5); MONOCYTE# 1.1 X10e3 (0-1.0); MONOCYTE% 11.9 % (3.0-12.0); NEUTROPHIL# 7.1 X10e3 (1.5-7.1); NEUTROPHIL% 73.4 % (40-75); RED BLOOD COUNT 3.87 X10e (3.90-5.60); RED CELL DISTRIBUTION WIDTH 14.3 % (11.0-15.5); WHITE BLOOD COUNT 9.6 X10e3 (4.0-10.5)
[2017-02-07 14:44] LABS: ALBUMIN SERUM 3.3 g/dL (3.5-5.0); BILIRUBIN, DIRECT 0.4 mg/dL (0.0-0.2); BILIRUBIN,INDIRECT 0.1 mg/dL (0.0-0.9); BILIRUBIN,TOTAL 0.5 mg/dL (0.2-2.0); BUN/CREATININE RATIO 17.5; CALCIUM SERUM 9.2 mg/dL (8.4-10.2); CREATININE SERUM 0.4 mg/dL (0.6-1.4); GLOM FILT RATE Estimated 132.8 mL/min (>60); POTASSIUM 4.3 mmol/L (3.5-5.1); PROTEIN TOTAL SERUM 6.8 g/dL (6.0-8.3)
[2017-02-07 14:53] LABS: DIFF IND NO; PLATELET COUNT 217 X10e3 (140-420)
[~2017-02-07 15:18] MED LIST changes: +AUGMENTIN875 M1 PO; +GABAPENTIN400 M2 PO; +PERCOCET 51 UDTAB 5/ PO; +ROBAXIN 750750 M1 DOB; +TOPROL XL 50 MG50 MG PO
== END 2017-02-07 16:11 | disposition home or self-care (01) ==
LOC: CED 15:18
PROVIDERS: Emergency Medicine
DX: M54.5 Low back pain (principal); M54.2 Cervicalgia; C25.9 Malignant neoplasm of pancreas, unspecified; C22.8 Malignant neoplasm of liver, primary, unspecified as to type; E10.9 Type 1 diabetes mellitus without complications; F17.200 Nicotine dependence, unspecified, uncomplicated; Z85.3 Personal history of malignant neoplasm of breast; Z79.899 Other long term (current) drug therapy; Z79.4 Long term (current) use of insulin; Z88.8 Allergy status to other drugs, medicaments and biological substances
CPT/HCPCS: 36415; 80048; 80076; 85025; 96374; 96375; 99284; J1170; J2550

== ENCOUNTER 2017-02-17 14:29 | Inpatient (IN) | payer OTHER ==
--- NOTE | ~2017-02-17 | CR72 ---
[facility] A Service of [facility] & [facility] RADIOLOGY TEXT RESULTS PATIENT: RACIEL GIBSON LOCATION: [facility] [address]-03 : 60 UNIT #: [id number] AGE: [address]: Sona Grey MD SEX: M ORDER DR: [id number] [facility] [address]. [place], [place] [address] [id number] I MR#: [id number] Acc #: [id number] NAME: RACIEL GIBSON : 1960 SEX: M STUDY DATE/TIME: 02/17/2017 13:30 UNIT: [facility] ROOM: [address] STUDY DESCRIPTION: CR Chest Single View Portable Attending Physician: Sona Grey M.D. Ordering Physician: Nathanael Tao M.D. Primary Care Physician: Raciel Desai M.D. MEDICAL IMAGING REPORT This report is preliminary unless electronic signature is present EXAM Single view of the chest INDICATIONS Chest pain for 1 day. Shortness of air. FINDINGS Single portable AP view of the chest compared to 05/23/2016. The heart and mediastinal contours are unchanged. Lungs are hyperinflated. No focal consolidation. No pleural effusion. IMPRESSION Pulmonary inflation, however no new findings. Dictated by... Jeremie Estrella M.D. THIS IS AN ELECTRONICALLY VERIFIED REPORT Jeremie Estrella M.D. at 02/18/2017 2:13 PM C/gloria TD: 02/17/2017 19:34 JOB #: [id number] MEDICAL IMAGING REPORT Page 1 of 1 COPY
--- NOTE | ~2017-02-17 | DS ---
Unit #: [id number] #: [id number] Patient: RACIEL GIBSON [id number] [address] [address] [id number] I MR#: [id number] NAME: RACIEL GIBSON ROOM: 227 Age: 56 Sex: M Admission Date: 02/17/2017 : 1960 Discharge Date: 02/21/2017 Attending Physician: Sona Grey M.D. Primary Care Physician: Raciel Desai M.D. DISCHARGE SUMMARY FINAL DIAGNOSES 1. Abdominal pain secondary to portal vein thrombosis. 2. Metastatic liver malignancy, primary pancreatic versus lung. 3. Hyponatremia. 4. Hypertension. 5. Diabetes mellitus. 6. Chronic pancreatitis. 7. History of alcohol abuse. 8. History of hepatitis B. DISCHARGE MEDICATIONS Discharge medications are: 1. Protonix 40 mg p.o. every day. 2. Dilaudid 4 mg 1-2 tablets q.6 p.r.n. Prescription written by Dr. Karl Garcia. 3. Lovenox 60 mg subcu. q.12. 4. Fentanyl 100 mg q.72 hours. 5. Lantus 20 units subcu. q.h.s. 6. Gabapentin 400 mg 3 times a day. 7. Hydroxyzine 10 mg q.6 p.r.n. 8. Nicotine transdermal 21 mg every day. 9. Norvasc 10 mg every day. 10. Toprol 50 mg every day. 11. Insulin sliding scale. CONSULTATION DURING HOSPITALIZATION Dr. Karl Garcia from hematology/oncology services. DIAGNOSTIC STUDIES LABORATORY: Workup on discharge: WBC 13.9, hemoglobin 11.2, hematocrit 33.7, and platelet count of 188. Sodium 130, potassium 3.9, chloride 93, BUN 7, and creatinine 0.7. IMAGING: Significant pertinent imaging studies done during hospitalization were: CT scan of the abdomen and pelvis, which showed significant progression of the presumed metastatic disease in the liver. Mass-like area of the pancreatic head is unchanged. Occluded proximal portal vein with reconstitution of the mid and peripheral portions of the portal vein. Small amount of ascites is present. CT of the chest, which shows no pulmonary embolism. Slight interval enlargement of the irregularly marginated bilobed mass in the superior segment of the left lower lobe as compared to CT earlier, January 25. Subcarinal adenopathy measuring 2.4 cm. Unit #: [id number] #: [id number] Patient: RACIEL GIBSON HOSPITAL COURSE Mr. Raciel Gibson is a 56-year-old male who was recently discharged from hospital on January 30, 2017. Returned back with abdominal pain. Patient had a CT scan done in ER, which showed portal vein thrombosis. Patient was started on Lovenox. Patient's abdominal pain has improved. Dr. Garcia was consulted. Patient's liver disease seemed to have progress. It was thought that either the primary is from pancreatic or lung primary. Again, he has had significant worsening of the disease with increase in the size of the liver mass as well as mesenteric, portal, venous, and splenic vein thrombosis. Patient is stable. Abdominal pain has improved. Patient is being discharge home to start chemotherapy as outpatient. PHYSICAL EXAMINATION VITAL SIGNS ON DISCHARGE: Blood pressure is 123/62, respiratory rate 18, pulse is 86, and temperature 98.9. HEENT: Head is normocephalic. CHEST: With decreased air entry bilaterally. CVS: S1 and S2 positive regular rhythm. DISCHARGE INSTRUCTIONS 1. Patient is being discharged home in stable condition. 2. Medications as per med rec. 3. Please note, pain management is being done as per Dr. Garcia. 4. Follow up with oncology on Saturday for chemotherapy. 5. Follow up with Dr. Desai in one week. Dictated by... Vivien Lawton TD: 02/22/2017 08:16 JOB #: [id number] DISCHARGE SUMMARY Page 1 of 1 X Sona Grey MD DISCHARGE SUMMARY
--- NOTE | ~2017-02-17 | CT16 ---
[facility] A Service of [facility] RADIOLOGY TEXT RESULTS PATIENT: RACIEL GIBSON LOCATION: [facility] [id number] : 60 UNIT #: [id number] AGE: [address]: Sona Grey MD SEX: M ORDER DR: [id number] [facility] [address] [place], [place] [address] [id number] MR#: [id number] Acc #: [id number] NAME: RACIEL GIBSON : 1960 SEX: M STUDY DATE/TIME: 02/17/2017 14:14 UNIT: [facility] ROOM: 73849 STUDY DESCRIPTION: CT Angio Chest for PE Attending Physician: Sona Grey M.D. Ordering Physician: Nathanael Tao M.D. Primary Care Physician: Racile Desai M.D. MEDICAL IMAGING REPORT This report is preliminary unless electronic signature is present EXAM CT angiogram chest with IV contrast HISTORY Right side chest pain for 2 days. FINDINGS IV contrast-enhanced CT angiogram of the chest was performed with 3-D reconstructions. This CT exam was performed with one or more of the following radiation dose reduction techniques: Automatic exposure control, adjustment of mA and/or kV according to patient size, and iterative reconstruction. No evidence of pulmonary embolus. Normal pulmonary arterial enhancement. Slight interval enlargement of the bilobed mass in the superior segment left lower lobe, now measuring 3.1 cm x 1.4 cm x 2.3 cm. Considerations include enlarging malignancy including lung carcinoma versus progressive infectious or inflammatory process. An 8 mm subpleural nodule in the posterior left upper lobe is larger than on the prior CT, raising the possibility of pulmonary metastatic disease versus progressive infectious or inflammatory nodule. No new airspace infiltrates in the remainder of the lungs. Mild emphysema in the bilateral upper lobes. Incidental 3 mm nodule in the posterolateral right lower lobe is stable. Mild centrilobular emphysema in the bilateral upper lobes. Enlarged subcarinal lymph node measures 2.4 cm, stable compared to the prior exam. Considerations include metastatic disease versus reactive or inflammatory adenopathy. No pericardial thickening. Images of the upper abdomen demonstrate multiple hepatic masses, concerning for metastatic disease, as noted on prior CTs. IMPRESSION 1. No pulmonary embolus. 2. Slight interval enlargement of the irregularly marginated bilobed STS. [facility] A Service of [facility] RADIOLOGY TEXT RESULTS PATIENT: RACIEL GIBSON LOCATION: [facility] [address]-30 : 60 UNIT #: [id number] AGE: [address]: Sona Grey MD SEX: M ORDER DR: mass in the superior segment left lower lobe as compared to CT 01/25/2017. Considerations include lung carcinoma or metastatic disease, versus progressive infectious or inflammatory process. 3. There is also slight interval enlargement of an 8 mm pulmonary nodule in the posterior margin of the superior right lower lobe. 4. Stable subcarinal adenopathy measuring 2.4 cm. Considerations include metastatic disease versus reactive or inflammatory adenopathy. 5. Mild centrilobular emphysema in the bilateral upper lobes. Dictated by... Wilfrido Tenorio M.D. THIS IS AN ELECTRONICALLY VERIFIED REPORT Wilfrido Tenorio M.D. at 02/17/2017 10:53 PM DFL/gloria TD: 02/17/2017 20:36 JOB #: [id number] MEDICAL IMAGING REPORT Page 1 of 1 COPY
--- NOTE | ~2017-02-17 | CO ---
Unit #: [id number] #: [id number] Patient: RACIEL GIBSON [id number] [facility] [address] [place], [place] [address] [id number] I MR#: [id number] NAME: RACIEL GIBSON ROOM: 227 Age: 56 Sex: M Admission Date: 02/17/2017 : 1960 Attending Physician: Sona Grey M.D. Primary Care Physician: Raciel Desai M.D. Requesting Physician: Sona Grey M.D. Consultation Date: 02/18/2017 CONSULTATION REPORT REASON FOR CONSULTATION Liver metastasis, new portable venous thrombosis. HISTORY OF PRESENT ILLNESS Mr. Raciel Gibson is a 56-year-old with a history of metastatic disease to the liver either from lung or pancreatic primary. He was admitted and discharged from the hospital on 01/30/2017 and is scheduled to start chemotherapy this week. He was seen in the emergency room at [facility] complaining of severe right upper quadrant abdominal pain. A CT scan of the abdomen and pelvis done on 02/17/2017 showed liver metastasis of increased significant size. The right hepatic lobe metastasis measured 1.3 cm, currently 2.7 cm. Another one was 2 cm, previously 1.2 cm, with increase in size of his liver to 22 cm compared to 19 mm. There is occlusion of the proximal portal vein with reconstitution of the middle and distal portion. The splenic vein and superior mesenteric veins were also occluded, all of which were new in comparison to his CT scan done 01/22/2017. He has since been anticoagulated with Lovenox 1 mg/kg body weight and he tells me his abdominal pain is somewhat better with his pain medications. Appetite has been somewhat decreased secondary to pain along with nausea. At his previous admission he had CT-guided liver biopsy with immunohistic anatrope stains. Unclear whether he had metastatic pancreatic or metastatic lung cancer, given TTF1 positivity. He did have a pancreatic mass on his septum, but CT scan of the abdomen and pelvis which was biopsied by endoscopic ultrasound and was negative. PAST MEDICAL HISTORY 1. Liver metastasis as discussed. 2. Type 2 diabetes mellitus. 3. Hypertension. 4. History of alcohol abuse, now sober for four years. 5. Pancreatitis. SOCIAL HISTORY Lives with mother. Smokes 1-1.5 packs per day. Does not drink any alcohol. FAMILY HISTORY Notable for breast cancer in mother, who also had lymphoma. Father and sister with cancers too. REVIEW OF SYSTEMS Fourteen point review of systems was taken. CONSTITUTIONAL: As discussed. Unit #: [id number] #: [id number] Patient: RACIEL GIBSON EYES: Negative. EARS, NOSE, MOUTH AND THROAT: Negative. CARDIOVASCULAR: Negative. RESPIRATORY: Negative. GASTROINTESTINAL: Abdominal pain as discussed. GENITOURINARY: Negative. NEUROLOGIC: Negative. SKIN: Negative. ENDOCRINE: He is a diabetic and tells me he is on insulin and is comfortable giving himself injections. LYMPHATIC: Negative. PSYCHIATRIC: Negative. PHYSICAL EXAMINATION GENERAL: He is in mild distress secondary to pain. He is awake and alert (2) with performance of one. VITALS: Temperature 98.5, pulse 73, respiratory rate 15, blood pressure 130/75. HEENT: Pupils equal and reacting well to light. No pallor or icterus. Mucous membranes are moist. NECK: No lymphadenopathy, jugular venous distension or thyromegaly. LUNGS: Chest expansion is symmetric. Bilateral equal entry with normal breath sounds. HEART: S1 and S2. Regular. No murmurs, gallops or rubs. ABDOMEN: Soft and nontender. Bowel sounds active. Liver easily palpable to his costal margin. Mildly tender. EXTREMITIES: Normal pedal pulses. No edema, cyanosis or clubbing. NEUROLOGIC: He is awake and alert, oriented times three, without any focal findings. DIAGNOSTIC STUDIES IMAGING: CT angio of the chest shows interval enlargement of the bilobed mass in the superior segment left lobe, currently measuring 3.1 x 1.5 x 2.3 cm. Sub-cm pleural based nodule is also larger and subcarinal lymph node is stable. LABORATORY: White count 15.6, hemoglobin 13.4, platelet count 318,000. Basic metabolic panel shows a BUN of 8, creatinine 0.6, AST 100, alkaline phosphatase 971, bilirubin 3.1 with direct of 1.6. Pro time is 13, INR 1.2, PTT 34 seconds. ASSESSMENT/PLAN Mr. Raciel Gibson is a 56-year-old wit metastatic cancer of the liver, either from pancreatic or lung primary, although with the development of portal venous thrombosis it is felt to suggest pancreatic primary. 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 I discussed with Mr. Gibson and recommended continued anticoagulation with 1 mg of Lovenox b.i.d., which translates to a dose of 60 mg b.i.d., which he will need to be taught, but is comfortable in self injecting, given his history of insulin usage. Recommended fentanyl 50 mcg q.72 h. pain patch for better pain control, with plans to start chemotherapy after he is discharged. I discussed with him that the planned chemotherapy regimen of Brexin and gemcitabine was actually selected because of overlap in activity again both lung and pancreatic cancer, which we plan to start. Thank you for allowing me to participate in his care. We will follow with Unit #: [id number] #: [id number] Patient: RACIEL GIBSON. Dictated by... Vivien Overton/aide TD: 02/18/2017 15:21 JOB #: [id number] CONSULTATION REPORT Page 1 of 1 X Karl Garcia MD CONSULTATION REPORT
--- NOTE | ~2017-02-17 | EKG ---
PATIENT: THIAGO GIBSON UNIT #: [id number] Ventricular Rate: 81 BPM Atrial Rate: 81 BPM P-R Interval: 122 ms QRS Duration: 120 ms Q-T Interval: 410 ms QTC Calculation(Bezet): 476 ms P Winthrop: 55 degrees Calculated R Winthrop: 16 degrees Calculated T Winthrop: 4 degrees Diagnosis Line: Normal sinus rhythm Diagnosis Line: Right bundle branch block with repolarization Diagnosis Line: abnormality Diagnosis Line: Abnormal ECG Diagnosis Line: When compared with ECG of 08-JAN-2017 10:49, Diagnosis Line: Premature atrial complexes are no longer Present Diagnosis Line: Confirmed by ANTHONY SZYMANSKI MD ([id number]) on 02/17/2017 Diagnosis Line: 2:52:08 PM Diagnosis Line: Also confirmed by ANTHONY SZYMANSKI MD ([id number]) on Diagnosis Line: 02/17/2017 2:52:34 PM INTERPRETING MD: NESSA LUND
--- NOTE | ~2017-02-17 | HP ---
Unit #: [id number] #: [id number] Patient: THIAGO GIBSON [id number] [place], [place] [address] [id number] I MR#: [id number] NAME: THIAGO GIBSON ROOM: 53615 Age: 56 Sex: M Admission Date: 02/17/2017 : 1960 Attending Physician: Sona Grey M.D. Primary Care Physician: Thiago Desai M.D. HISTORY AND PHYSICAL CHIEF COMPLAINT Abdominal pain. HISTORY OF PRESENTING ILLNESS Mr. Thiago Gibson is a 56-year-old male who was recently discharged from [facility] on January 30, 2017, after being treated for acute on chronic pancreatitis. The patient was also found to have multiple liver lesions and he had biopsy done. The patient is aware that he does have malignancy. Primary could be pancreatic or lung. The patient has appointment coming up with oncologist on Saturday for treatment plan. The patient went home, was doing okay but now he started having abdominal pain which was worse than before. He started having nausea. He has no appetite, no energy, aches all over, generalized weakness. No complaint of fever, chills or rigors. No complaint of constipation or diarrhea. PAST MEDICAL HISTORY 1. Diabetes mellitus type 2. 2. Hypertension. 3. Chronic pancreatitis. 4. Pancreatic head mass with liver mets. 5. History of alcohol abuse. 6. Chronic hyponatremia. 7. History of hepatitis B. MEDICATIONS Home medications are: 1. NovoLog sliding scale. 2. Lantus 20 units subcu at bedtime. 3. Norvasc 10 mg daily. 4. Robaxin 750 mg as needed. 5. Gabapentin 400 mg three times a day. 6. Toprol XL 50 mg daily. 7. Percocet 5/325, one tablet q.6 p.r.n. 8. Flonase nasal spray daily. 9. Hydroxyzine 10 mg every six hours p.r.n. SOCIAL HISTORY The patient has a history of smoking and continued to smoke. He has a past history of heavy drinking. Per patient, he has cut down a lot. No history of drug abuse. FAMILY HISTORY Significant for malignancy. Mother had breast cancer. Father had malignancy but details not known. Sister of another malignancy too. Unit #: [id number] #: [id number] Patient: THIAGO GIBSON PAST SURGICAL HISTORY 1. Cholecystectomy. 2. Biliary stent placement in the past. REVIEW OF SYSTEMS As per history of presenting illness. PHYSICAL EXAMINATION GENERAL: The patient is being seen in ER bed-3. VITAL SIGNS: Blood pressure is 121/71, respiratory rate is 16, pulse is 67, temperature 98.5, oxygen saturation is 97%. HEENT: Head is normocephalic. Eye movements normal. Pale conjunctivae. CHEST: Fair air entry. No additional sounds. CVS: S1, S2 positive. Regular rhythm. ABDOMEN: Tenderness is present in the epigastric and right upper quadrant. Hepatomegaly is present. Bowel sounds are positive. EXTREMITIES: Negative edema. PAVILION CUTTER: The patient is awake, alert, oriented x3. No focal neurological deficits. DIAGNOSTIC STUDIES LABORATORY: Lab workup - WBC 15.6, hemoglobin 13.4, hematocrit 40.5 and platelet count of 318. Sodium 129, potassium 4.6, chloride 94, BUN 8, creatinine 0.6. Alkaline phos, is elevated to 971, total bilirubin 3.1, direct bilirubin 1.6, indirect bilirubin 1.5. Urinalysis shows trace of protein. IMAGING: CT scan of the abdomen and pelvis was done using ER and shows portal vein thrombosis and significant progression of the presumed metastatic disease in the liver. CT of the chest was done and PE was ruled out. LABORATORY: Blood cultures are back which is no growth. ASSESSMENT AND PLAN The patient is being admitted to Med/Surg unit with: 1. Intractable abdominal pain. 2. Portal vein thrombosis. 3. Metastatic malignancy which is progressed since the last visit, primary pancreatic versus lung. 4. Diabetes mellitus type 2. 5. Hypertension. 6. Alcohol abuse. 7. Hyponatremia. 8. Weight loss and appetite lose. Plan is admit to Med/Surg unit. Dr. Garcia has been consulted. Lovenox 60 mg subcu q.12 is being started. Fentanyl patch is being started. Home medications have been reviewed and adjusted. Accu-Chek a.c. and h.s. is being done. Please refer to progress note for further orders. Dictated by Unit #: [id number] #: [id number] Patient: THIAGO GIBSON Vivien Lawton TD: 02/18/2017 13:08 JOB #: [id number] HISTORY AND PHYSICAL Page 1 of 1 X Sona Grey MD HISTORY AND PHYSICAL
--- NOTE | ~2017-02-17 | CT2 ---
[facility] A Service of [facility] RADIOLOGY TEXT RESULTS PATIENT: RACIEL GIBSON LOCATION: [facility] [address]-32 : 60 UNIT #: [id number] AGE: [address]: Sona Grey MD SEX: M ORDER DR: [id number] [facility] [address] [place], [place] [address] [id number] I MR#: [id number] Acc #: [id number] NAME: RACIEL GIBSON : 1960 SEX: M STUDY DATE/TIME: 02/17/2017 13:38 UNIT: CEDOF ROOM: 83652 STUDY DESCRIPTION: CT Abd and Pelv W Cont Attending Physician: Sona Grey M.D. Ordering Physician: Nathanael Tao M.D. Primary Care Physician: Raciel Desai M.D. MEDICAL IMAGING REPORT This report is preliminary unless electronic signature is present EXAM CT abdomen and pelvis INDICATIONS Right-sided chest and abdominal pain. Hepatomegaly. Nausea and weakness for [address] of the abdomen and pelvis with p.o. and IV contrast (100 mL Isovue-370 IV contrast). Coronal and sagittal reconstructions were obtained. This CT exam was performed with one or more of the following radiation dose reduction techniques: Automatic exposure control, adjustment of mA and/or kV according to patient size, and iterative reconstruction. COMPARISON CT abdomen and pelvis dated 01/22/2017. FINDINGS ABDOMEN: The patient has interval lesions scattered throughout the hepatic parenchyma. These lesions have significantly increased in size and number in the short interval. An index lesion in the right hepatic lobe previously measured 1.3 cm. This now measures up to 2.7 cm. A second index lesion measures 2 cm compared to 1.2 cm previously. Overall size of the liver has also increased measuring up to 22 cm compared to 19 cm. Mass-like area in the head of the pancreas has not significantly changed. There are some associated dystrophic calcifications. There is occlusion of the proximal portal vein with reconstitution of the mid and distal portions. The splenic vein and SMV are also occluded. [facility] A Service of [facility] RADIOLOGY TEXT RESULTS PATIENT: RACIEL GIBSON LOCATION: [facility] [address]-40 : [birth year] UNIT #: [id number] AGE: [address]: Sona Grey MD SEX: M ORDER DR: The adrenal glands and kidneys are unchanged. Left kidney is atrophic. No enlarged mesenteric lymph nodes. PELVIS: No pelvic mass. There is a small volume of free fluid. Bladder is unremarkable. No acute osseous abnormalities. IMPRESSION 1. Fairly significant progression of presumed metastatic disease in the liver. There is significant increase in size and number of metastatic deposits in a short interval (comparison on 01/22/2017). 2. Mass-like area of the pancreatic head is unchanged. 3. Occluded proximal portal vein with reconstitution of the mid and peripheral portions of the portal vein. The SMV and splenic vein are occluded. Numerous collaterals are identified. 4. Small volume of ascites. Dictated by... Jeremie Estrella M.D. THIS IS AN ELECTRONICALLY VERIFIED REPORT Jeremie Estrella M.D. at 02/18/2017 2:14 PM RASHAWN/gloria TD: 02/17/2017 20:24 JOB #: [id number] MEDICAL IMAGING REPORT Page 1 of 1 COPY
--- NOTE | ~2017-02-17 | CT7 ---
[facility] A Service of [facility] RADIOLOGY TEXT RESULTS PATIENT: RACIEL GIBSON LOCATION: [facility] 227-01 : 60 UNIT #: [id number] AGE: [address]: Sona Grey MD SEX: M ORDER DR: [id number] [facility] [address] [place], [place] [address] [id number] I MR#: [id number] Acc #: [id number] NAME: RACIEL GIBSON : 1960 SEX: M STUDY DATE/TIME: 02/19/2017 16:23 UNIT: [facility] ROOM: [facility] STUDY DESCRIPTION: CT Abdomen Wo Cont Attending Physician: Sona Grey M.D. Ordering Physician: Karl Garcia M.D. Primary Care Physician: Raciel Desai M.D. MEDICAL IMAGING REPORT This report is preliminary unless electronic signature is present EXAM CT abdomen, 02/19/2017 INDICATION Generalized weakness. Abdominal pain and nausea. Recent liver biopsy. Diffuse metastatic disease in the liver. TECHNIQUE CT of the abdomen without contrast. Coronal and sagittal reconstructions were obtained. This CT exam was performed with one or more of the following radiation dose reduction techniques: automatic exposure control, adjustment of mA and/or kV according to patient size, and iterative reconstruction. COMPARISON CT abdomen dated 02/17/2017 and 01/23/2017. FINDINGS There is a small amount of ascites in the upper abdomen along the liver. No evidence of a subcapsular hematoma. Evaluation for subcapsular hematoma is decreased in sensitivity without the use IV contrast. There is diffuse metastatic disease throughout the liver as previously mentioned. There is pneumobilia in the left hepatic lobe. The left hepatic lobe is atrophic. There is some calcifications and amorphic mass-like appearance to the pancreatic head. The spleen is enlarged. Adrenal glands and kidneys are unchanged. There is atrophy of the left kidney. The bowel is not dilated. No new osseous abnormalities. There are a few smaller foci in the axial skeleton suggesting metastatic disease. [facility] A Service [facility] RADIOLOGY TEXT RESULTS PATIENT: RACIEL GIBSON LOCATION: A 227-01 : 60 UNIT #: [id number] AGE: [address]: Sona Grey MD SEX: M ORDER DR: IMPRESSION 1. No new findings. 2. Enlarged liver due to innumerable hepatic metastases. 3. Trace ascites. 4. Osseous metastatic disease is unchanged. Dictated by... Jeremie Estrella M.D. THIS IS AN ELECTRONICALLY VERIFIED REPORT Jeremie Estrella M.D. at 02/19/2017 9:43 PM RASHAWN/dylon TD: 02/19/2017 21:06 JOB #: [id number] MEDICAL IMAGING REPORT Page 1 of 1 COPY
[2017-02-17 12:57] LABS: BASOPHIL# 0.1 X10e3 (0-0.3); BASOPHIL% 0.4 % (0-2.5); HEMATOCRIT 40.5 % (38.0-50.0); HEMOGLOBIN 13.4 gm/dL (13.0-16.0); LYMPHOCYTE# 0.7 X10e3 (1.0-3.5); LYMPHOCYTE% 4.5 % (17.0-45.0); MEAN CELL VOLUME 94.8 FL (83-96); MEAN CORPUSCULAR HEMOGLOBIN 31.4 PG (28-34); MEAN CORPUSCULAR HGB CONC 33.2 g/dL (30-36); MEAN PLATELET VOLUME 7.9 FL (6.5-11.5); MONOCYTE# 1.6 X10e3 (0-1.0); NEUTROPHIL# 13.3 X10e3 (1.5-7.1); NEUTROPHIL% 85.1 % (40-75); PLATELET COUNT 318 X10e3 (140-420); RED BLOOD COUNT 4.28 X10e (3.90-5.60); WHITE BLOOD COUNT 15.6 X10e3 (4.0-10.5)
[2017-02-17 12:58] LABS: DIFF IND YES
[2017-02-17 13:11] LABS: PLATELET ESTIMATE NORMAL (NORMAL)
[2017-02-17 13:18] LABS: ALBUMIN SERUM 3.3 g/dL (3.5-5.0); BILIRUBIN, DIRECT 1.6 mg/dL (0.0-0.2); BILIRUBIN,INDIRECT 1.5 mg/dL (0.0-0.9); BILIRUBIN,TOTAL 3.1 mg/dL (0.2-2.0); BUN/CREATININE RATIO 13.33; CALCIUM SERUM 9.3 mg/dL (8.4-10.2); CREATININE SERUM 0.6 mg/dL (0.6-1.4); GLOM FILT RATE Estimated 112.4 mL/min (>60); POTASSIUM 4.6 mmol/L (3.5-5.1); PROTEIN TOTAL SERUM 7.4 g/dL (6.0-8.3)
[2017-02-17 13:53] LABS: POC - CKMB 4.3 ng/mL (0.0-7.9); POC - TROPONIN <0.05 ng/mL (<=0.05)
[2017-02-17 13:59] LABS: URINE SOURCE CLEAN CATCH
[2017-02-17 14:04] LABS: URINE APPEARANCE CLEAR; URINE BLOOD NEG (NEG); URINE COLOR DK YELLOW; URINE GLUCOSE NEG (NEG); URINE KETONE 2+ (NEG); URINE LEUKOCYTE ESTERASE NEG (NEG); URINE NITRATE NEG (NEG); URINE PH 6.5 (5-8); URINE PROTEIN TRACE (NEG); URINE SPECIFIC GRAVITY 1.016 (1.003-1.035)
[2017-02-17 14:14] LABS: URINE BILIRUBIN NEG (NEG)
[2017-02-17 14:16] LABS: CULTURE INDICATED? NO
[2017-02-17] MEDS ORDERED: FLONASE 0.05% N16 G1 (16:41)
[2017-02-17] MEDS ORDERED: HYDROXYZINE HCL10 MG PO (16:42)
[2017-02-17 17:22] LABS: INR 1.2
[2017-02-19 07:58] LABS: HEMATOCRIT 36.7 % (38.0-50.0); HEMOGLOBIN 12.3 gm/dL (13.0-16.0); MEAN CELL VOLUME 95.5 FL (83-96); MEAN CORPUSCULAR HGB CONC 33.5 g/dL (30-36); MEAN PLATELET VOLUME 8.1 FL (6.5-11.5); RED BLOOD COUNT 3.84 X10e (3.90-5.60); RED CELL DISTRIBUTION WIDTH 14.8 % (11.0-15.5); WHITE BLOOD COUNT 12.2 X10e3 (4.0-10.5)
[2017-02-19 09:18] LABS: ALBUMIN SERUM 2.7 g/dL (3.5-5.0); BILIRUBIN,TOTAL 2.5 mg/dL (0.2-2.0); BUN/CREATININE RATIO 14.28; CALCIUM SERUM 8.7 mg/dL (8.4-10.2); CREATININE SERUM 0.7 mg/dL (0.6-1.4); GLOM FILT RATE Estimated 105.5 mL/min (>60); POTASSIUM 4.2 mmol/L (3.5-5.1); PROTEIN TOTAL SERUM 6.2 g/dL (6.0-8.3)
[2017-02-20 07:27] LABS: CREATININE SERUM 0.7 mg/dL (0.6-1.4); GLOM FILT RATE Estimated 105.5 mL/min (>60); POTASSIUM 3.9 mmol/L (3.5-5.1)
[2017-02-21 05:39] LABS: HEMATOCRIT 33.7 % (38.0-50.0); HEMOGLOBIN 11.2 gm/dL (13.0-16.0); MEAN CELL VOLUME 95.4 FL (83-96); MEAN CORPUSCULAR HEMOGLOBIN 31.7 PG (28-34); MEAN CORPUSCULAR HGB CONC 33.2 g/dL (30-36); MEAN PLATELET VOLUME 8.3 FL (6.5-11.5); RED BLOOD COUNT 3.53 X10e (3.90-5.60); RED CELL DISTRIBUTION WIDTH 15.2 % (11.0-15.5); WHITE BLOOD COUNT 13.9 X10e3 (4.0-10.5)
[2017-02-21] MEDS ORDERED: LOVENOX SUBQ (15:13)
[2017-02-21] MEDS ORDERED: DURAGESIC1 EAC1 TD (15:14)
[2017-02-21] MEDS ORDERED: DILAUDID 00.5 MG/0.5 INJ (15:16)
[2017-02-21] MEDS ORDERED: NICOTINE PATCH1 EAC1 TD (15:18)
[2017-02-21] MEDS ORDERED: PROTONIX PO (15:19)
== END 2017-02-21 18:09 | disposition home or self-care (01) | DRG 442 ==
LOC: CED 14:29 → CEDOF 15:50 → C2A 02-18 15:17
PROVIDERS: Emergency Medicine; Internal Medicine; Physician Assistant Medical
PROC: B30TZZZ Plain Radiography of Left Pulmonary Artery (ICD-10-PCS; principal; 2017-02-17)
PROC: B30SZZZ Plain Radiography of Right Pulmonary Artery (ICD-10-PCS; 2017-02-17)
DX: I81 Portal vein thrombosis (principal); C25.0 Malignant neoplasm of head of pancreas; C78.7 Secondary malignant neoplasm of liver and intrahepatic bile duct; R18.8 Other ascites; C34.90 Malignant neoplasm of unspecified part of unspecified bronchus or lung; E87.1 Hypo-osmolality and hyponatremia; K86.1 Other chronic pancreatitis; F10.10 Alcohol abuse, uncomplicated; I10 Essential (primary) hypertension; E11.9 Type 2 diabetes mellitus without complications; Z79.4 Long term (current) use of insulin; Z86.19 Personal history of other infectious and parasitic diseases; F17.210 Nicotine dependence, cigarettes, uncomplicated; Z90.49 Acquired absence of other specified parts of digestive tract; R63.4 Abnormal weight loss; Z68.20 Body mass index [BMI] 20.0-20.9, adult; Z80.3 Family history of malignant neoplasm of breast; Z80.9 Family history of malignant neoplasm, unspecified
CPT/HCPCS: 36415; 71010; 71275; 74150; 74177; 80048; 80053; 80076; 81003; 82553; 82947; 83690; 84484; 85025; 85027; 85610; 85730; 87040; 93005; 96361; 96374; 96375; 99291; J1170; J1650; J1815; J2405; Q9967

== ENCOUNTER 2017-02-23 23:59 | Emergency (ER) | payer OTHER ==
--- NOTE | ~2017-02-23 | CT2 ---
[facility] A Service of [facility] RADIOLOGY TEXT RESULTS PATIENT: RACIEL GIBSON LOCATION: [facility] : 60 UNIT #: [id number] AGE: [address]: Indra Preciado MD SEX: M ORDER DR: [id number] [facility] [address] [place], [place] [address] [id number] MR#: [id number] Acc #: [id number] NAME: RACIEL GIBSON : 1960 SEX: M STUDY DATE/TIME: 02/24/2017 02:24 UNIT: [facility] ROOM: STUDY DESCRIPTION: CT Abd and Pelv W Cont Attending Physician: Indra Preciado M.D. Ordering Physician: Jaylen Rodriguez M.D. Primary Care Physician: Raciel Desai M.D. MEDICAL IMAGING REPORT This report is preliminary unless electronic signature is present EXAM CT abdomen and pelvis 02/24 at 02:24 INDICATIONS Right upper quadrant pain with nausea, abdominal distension and jaundice since 2 o'clock yesterday. Diagnosed last month with cancer. TECHNIQUE Axial images were obtained through the abdomen and pelvis following oral and IV contrast administration. Multiplanar reformats were obtained. This CT exam was performed with one or more of the following radiation dose reduction techniques: automatic control, adjustment of mA and/or kV according to patient size, and iterative reconstruction. Comparison is made with 02/17/2017. FINDINGS ABDOMEN: Lung bases remain clear. Again seen are innumerable metastatic lesions throughout the liver. Given the configuration and number of nodules throughout the liver, it is difficult to accurately compare. However, these appear largely stable. The liver remains enlarged. Masslike density in the head of the pancreas is not significantly changed. Gallbladder is surgically absent. The left kidney remains atrophic. Both kidneys are nonobstructed. There is a trace amount of free fluid now noted. Spleen size is stable. GI tract is within normal limits. PELVIS: There is a small volume of free fluid in the pelvis which is new. The bladder is normal. The lower GI tract is within normal limits. No suspicious osseous lesions in the abdomen or pelvis. IMPRESSION 1. Essentially stable appearance of the liver. The liver remains enlarged with innumerable metastatic lesions throughout. 2. Grossly stable masslike lesion in the head of the pancreas. [facility] A Service of [facility] RADIOLOGY TEXT RESULTS PATIENT: RACIEL GIBSON LOCATION: [facility] : 60 UNIT #: [id number] AGE: [address]: Indra Preciado MD SEX: M ORDER DR: 3. Cholecystectomy. 4. Stable atrophy of the left kidney. Both kidneys are nonobstructed. 5. No acute findings in the GI tract. 6. New small volume of free fluid in the abdomen and pelvis. Dictated by... Indra Yu Jr., M.D. THIS IS AN ELECTRONICALLY VERIFIED REPORT Indra Yu Jr., M.D. at 02/24/2017 6:02 AM JACKSON/benny TD: 02/24/2017 05:43 JOB #: [id number] MEDICAL IMAGING REPORT Page 1 of 1 COPY
[~2017-02-23 23:59] MED LIST changes: +DILAUDID 00.5 MG/0.5 INJ; +DURAGESIC1 EAC1 TD; +FLONASE 0.05% N16 G1; +HYDROXYZINE HCL10 MG PO; +LOVENOX SUBQ; +NICOTINE PATCH1 EAC1 TD
[2017-02-24 00:58] LABS: BASOPHIL% 0.3 % (0-2.5); EOSINOPHIL% 0.2 % (0.0-7.0); HEMATOCRIT 32.4 % (38.0-50.0); HEMOGLOBIN 11.1 gm/dL (13.0-16.0); LYMPHOCYTE# 0.7 X10e3 (1.0-3.5); LYMPHOCYTE% 4.8 % (17.0-45.0); MEAN CELL VOLUME 92.2 FL (83-96); MEAN CORPUSCULAR HEMOGLOBIN 31.6 PG (28-34); MEAN CORPUSCULAR HGB CONC 34.3 g/dL (30-36); MEAN PLATELET VOLUME 7.6 FL (6.5-11.5); MONOCYTE% 14.2 % (3.0-12.0); NEUTROPHIL# 11.5 X10e3 (1.5-7.1); NEUTROPHIL% 80.5 % (40-75); PLATELET COUNT 257 X10e3 (140-420); RED BLOOD COUNT 3.51 X10e (3.90-5.60); WHITE BLOOD COUNT 14.2 X10e3 (4.0-10.5)
[2017-02-24 01:05] LABS: DIFF IND NO
[2017-02-24 01:24] LABS: ALBUMIN SERUM 2.5 g/dL (3.5-5.0); BILIRUBIN, DIRECT 3.8 mg/dL (0.0-0.2); BILIRUBIN,INDIRECT 1.9 mg/dL (0.0-0.9); BILIRUBIN,TOTAL 5.7 mg/dL (0.2-2.0); BUN/CREATININE RATIO 13.33; CALCIUM SERUM 8.7 mg/dL (8.4-10.2); CREATININE SERUM 0.6 mg/dL (0.6-1.4); GLOM FILT RATE Estimated 112.4 mL/min (>60); POTASSIUM 3.8 mmol/L (3.5-5.1); PROTEIN TOTAL SERUM 6.6 g/dL (6.0-8.3)
[2017-02-24] MEDS ORDERED: DILAUDID PO (17:49)
== END 2017-02-24 04:07 | disposition home or self-care (01) ==
LOC: CED 23:59
PROVIDERS: Emergency Medicine
DX: C78.7 Secondary malignant neoplasm of liver and intrahepatic bile duct (principal); C25.9 Malignant neoplasm of pancreas, unspecified; Z90.49 Acquired absence of other specified parts of digestive tract; F17.210 Nicotine dependence, cigarettes, uncomplicated; E87.1 Hypo-osmolality and hyponatremia
CPT/HCPCS: 36415; 74177; 80048; 80076; 82150; 83605; 83690; 85025; 96374; 96375; 99284; J2270; J2405; Q9967

== ENCOUNTER 2017-02-24 17:56 | Emergency (ER) | payer OTHER ==
[~2017-02-24 17:56] MED LIST changes: +DILAUDID PO
== END 2017-02-24 19:16 | disposition home or self-care (01) ==
LOC: SED 17:56
DX: H61.23 Impacted cerumen, bilateral (principal); F17.210 Nicotine dependence, cigarettes, uncomplicated; Z88.8 Allergy status to other drugs, medicaments and biological substances; Z79.899 Other long term (current) drug therapy; Z79.4 Long term (current) use of insulin
CPT/HCPCS: 69210; 99283

== ENCOUNTER → 2017-05-16 | Outpatient (CLI) | payer OTHER ==
[~2017-05-16] MED LIST changes: +DILAUDID4 MG PO; +ENOXAPARIN60 MG/0.1 SUBQ; +PATIENT'S PHARMACY; +TRESIBA FL100 UNIT/1 SUBQ; +ZOFRAN PO
--- NOTE | ~2017-05-16 | CT2 ---
[facility] A Service of [facility] RADIOLOGY TEXT RESULTS PATIENT: RACIEL GIBSON LOCATION: CIVR : 60 UNIT #: [id number] AGE: [address]: Karl Garcia MD SEX: M ORDER DR: [id number] [facility] [address] [place], [place] [address] [id number] O MR#: [id number] Acc #: [id number] NAME: RACIEL GIBSON : 1960 SEX: M STUDY DATE/TIME: 05/16/2017 16:33 UNIT: CIVR ROOM: STUDY DESCRIPTION: CT Abd and Pelv W Cont Attending Physician: Karl Garcia M.D. Referring Physician: Karl Garcia M.D. Ordering Physician: Karl Garcia M.D. Primary Care Physician: Raciel Desai M.D. MEDICAL IMAGING REPORT This report is preliminary unless electronic signature is present EXAM CT abdomen and pelvis with contrast DATE: 05/16/2017 HISTORY Right upper quadrant pain and left side pain with nausea and vomiting for 2 weeks. Abdominal distension. Status post paracentesis on 05/16/2017 at 14:37. History of breast cancer, Hepatitis B. COMPARISON CT abdomen and pelvis with contrast 02/24/2017. PROCEDURE 5 mm axial images from lung bases through lesser trochanters after intravenous and enteric contrast administration. Sagittal and coronal reformatted images were obtained. This CT exam was performed with one or more of the following radiation dose reduction techniques: automatic exposure control, adjustment of mA and/or kV according to patient size, and iterative reconstruction. FINDINGS Innumerable low-density lesions are seen throughout the liver parenchyma consistent with metastatic disease. These lesions appear to have slightly increased in size and number since the previous 02/24/2017 study. Small quantity perihepatic ascites persists. Extensive varicosities are present in the left upper quadrant, particularly in the gastrosplenic ligament. The spleen is enlarged up to 15.9 cm in length. There are features of chronic calcific pancreatitis but there is no convincing CT evidence of acute pancreatitis at this time. The left kidney is atrophic. Right kidney appears normal. The appendix is partially filled with air and STS. [facility] A Service of [facility] RADIOLOGY TEXT RESULTS PATIENT: RACIEL GIBSON LOCATION: [facility] : 60 UNIT #: [id number] AGE: [address]: Karl Garcia MD SEX: M ORDER DR: appears normal. Moderate ascending and transverse colonic stool burden. PELVIS FINDINGS: Mild to moderate pelvic ascites. Urinary bladder and rectum normal. Lung bases are free of consolidation or suspicious nodularity. Extensive sclerotic lesions have developed throughout the imaged spine and pelvis consistent with osseous metastatic disease. Chronic-appearing concavity of the superior endplate of L1. IMPRESSION 1. Progression of disease since 02/24/2017. Extensive sclerotic metastatic disease is seen throughout the imaged skeleton. 2. Extensive metastatic disease in the liver, which appears larger, with new lesions, being more confluent than on the prior exam. 3. Stable splenic enlargement. 4. Previously described mass lesion in the region of the pancreatic head is poorly identified on today's examination. There are features of chronic calcific pancreatitis. 5. [id number]-rs-[id number] quantity of pelvic ascites, increased since 02/24/2017. Small peripelvic ascites, unchanged. 6. Left renal atrophy. Dictated by... Tricia Disla M.D. THIS IS AN ELECTRONICALLY VERIFIED REPORT Tricia Disla M.D. at 05/17/2017 9:37 PM CHIQUITA/dylon TD: 05/17/2017 05:29 JOB #: [id number] MEDICAL IMAGING REPORT Page 1 of 1 COPY
--- NOTE | ~2017-05-16 | XA170 ---
[facility] A Service of [facility] & [facility] RADIOLOGY TEXT RESULTS PATIENT: THIAGO GIBSON LOCATION: CIVR : 60 UNIT #: [id number] AGE: [address]: Karl Garcia MD SEX: M ORDER DR: [id number] [facility] [address] [place], [place] [address] [id number] O MR#: [id number] Acc #: [id number] NAME: THIAGO GIBSON : 1960 SEX: M STUDY DATE/TIME: 05/16/2017 14:31 UNIT: [facility] ROOM: STUDY DESCRIPTION: XA Paracentesis W Image Attending Physician: Karl Garcia M.D. Referring Physician: Karl Garcia M.D. Ordering Physician: Karl Garcia M.D. Primary Care Physician: Thiago Desai M.D. MEDICAL IMAGING REPORT This report is preliminary unless electronic signature is present EXAM Ultrasound-guided paracentesis INDICATIONS Metastatic lung cancer with ascites. PROCEDURE Procedure, risks, benefits, and alternatives to the procedure were explained to the patient and signed informed consent was obtained. Preliminary ultrasound of the abdomen was performed which shows a large volume ascites. Images were permanently saved. Overlying skin was marked. Patient was prepped and draped in usual sterile fashion. Time-out was performed as per protocol. Skin and subcutaneous tissues were anesthetized with buffered lidocaine. Yueh catheter was advanced into fluid with aspiration of serous material. Catheter was hooked to suction tubing. There was evacuation of 7.4 L of serous material. Catheter is then removed and manual pressure was applied until hemostasis was obtained. IMPRESSION Technically successful ultrasound-guided paracentesis. Ultrasound was used during the procedure and permanent images were saved. Dictated by... Amy Castro M.D. THIS IS AN ELECTRONICALLY VERIFIED REPORT Amy Castro M.D. at 05/20/2017 5:22 PM AFF/pcl TD: 05/17/2017 16:25 JOB #: [id number] [facility] A Service of [facility] & [facility] RADIOLOGY TEXT RESULTS PATIENT: THIAGO GIBSON LOCATION: [facility] : 60 UNIT #: [id number] AGE: [address]: Karl Garcia MD SEX: M ORDER DR: MEDICAL IMAGING REPORT Page 1 of 1 COPY
[2017-05-16 15:10] LABS: BF TOTAL NUCLEATED CELL COUNT 287 CMM (0-100); BODY FLUID APPEARANCE CLEAR; BODY FLUID RBC <10000 CMM; BODY FLUID SOURCE ASCITES
[2017-05-16 16:01] LABS: PROTEIN, BODY FLUID 0.9 gm/dL
== END | disposition home or self-care (01) ==
LOC: CIVR 14:15
PROVIDERS: Internal Medicine Hematology & Oncology
PROC: 0W9G3ZX Drainage of Peritoneal Cavity, Percutaneous Approach, Diagnostic (ICD-10-PCS; principal; 2017-05-16)
DX: C34.32 Malignant neoplasm of lower lobe, left bronchus or lung (principal); C78.7 Secondary malignant neoplasm of liver and intrahepatic bile duct; C79.51 Secondary malignant neoplasm of bone; R18.8 Other ascites; K86.2 Cyst of pancreas; E10.9 Type 1 diabetes mellitus without complications; R16.1 Splenomegaly, not elsewhere classified; K86.1 Other chronic pancreatitis; N26.1 Atrophy of kidney (terminal)
CPT/HCPCS: 74177; 83615; 83986; 84157; 88108; 88305; 89051; Q9967

== ENCOUNTER 2017-05-27 09:28 | Inpatient (IN) | payer OTHER ==
--- NOTE | ~2017-05-27 | CT16 ---
[facility] A Service of [facility] RADIOLOGY TEXT RESULTS PATIENT: RACIEL GIBSON LOCATION: [facility] 339-01 : 60 UNIT #: [id number] AGE: [address]: Sona Grey MD SEX: M ORDER DR: [id number] [facility] [address] [place], [place] [address] [id number] I MR#: [id number] Acc #: [id number] NAME: RACIEL GIBSON : 1960 SEX: M STUDY DATE/TIME: 05/27/2017 13:05 UNIT: A U ROOM: [facility] STUDY DESCRIPTION: CT Angio Chest for PE Attending Physician: Sona Grey M.D. Ordering Physician: Russel Quan D.O. Primary Care Physician: Raciel Desai M.D. MEDICAL IMAGING REPORT This report is preliminary unless electronic signature is present EXAM CT of the chest with contrast PE protocol. INDICATIONS Shortness of breath for 1 week but worse today. The patient has a history of metastatic cancer. TECHNIQUE CT of the chest was performed following the administration of IV contrast using the pulmonary embolism protocol. Coronal, sagittal reformatted images were obtained. This CT exam was performed with one or more of the following radiation dose reduction techniques: automatic exposure control, adjustment of mA and/or kV according to patient size, and iterative reconstruction. COMPARISON STUDIES Compared with 02/17/2017 and also compared with CT of the abdomen and pelvis from 05/16/2017. FINDINGS Study is somewhat limited due to motion artifact but within the limitations of the study there is no evidence for pulmonary embolism. No suspicious lymphadenopathy. The enlarged lymph node in the subcarinal region impressing upon the esophagus on the previous study has markedly decreased in size. No new lymphadenopathy. No evidence for pleural effusion. Emphysematous changes of the lungs. No airspace consolidation. Overall the irregular nodular density within the superior segment of the left lower lobe is significantly decreased in size. There is a nodule more laterally which is slightly increased in size. This measures about 7 mm on today's study. Previously about 5 mm. There is some tree-in-bud nodularity within the anterior-inferior left lower lobe which is probably infectious/inflammatory. Stable 6 mm nodule posterior right lower lobe. [facility] A Service of [facility] RADIOLOGY TEXT RESULTS PATIENT: RACIEL GIBSON LOCATION: [facility] 339-01 : 60 UNIT #: [id number] AGE: [address]: Sona Grey MD SEX: M ORDER DR: No pleural effusion. Limited imaging of the upper abdomen shows upper abdominal ascites. Also demonstrated are innumerable metastatic lesions in the liver which are not significantly changed compared with a CT of the abdomen and pelvis from 05/16/2017. The bone windows show diffuse osseous metastatic disease in the thoracic spine and also within the sternum and also within multiple ribs. This is new compared with the chest CT from February 2017. IMPRESSION 1. No evidence of pulmonary embolism within the limitations of the study as there is some mild motion artifact. 2. Significant decrease in size of the subcarinal lymph node. 3. Near complete resolution of irregular nodular density in the superior segment the left upper lobe. 4. Slight increase in size of adjacent 7 mm nodular density in the superior segment of the left lower lobe. 5. New tree-in-bud nodularity inferiorly in the left lower lobe likely infectious/inflammatory. 6. Interval development of sclerotic metastatic disease within the thoracic spine, ribs and sternum. 7. Stable diffuse hepatic metastatic disease when compared with a recent CT of the abdomen from late April. 8. Upper abdominal ascites. Dictated by... Po Faria M.D. THIS IS AN ELECTRONICALLY VERIFIED REPORT Po Faria M.D. at 05/28/2017 7:29 AM Toña TD: 05/27/2017 18:27 JOB #: [id number] MEDICAL IMAGING REPORT Page 1 of 1 COPY
--- NOTE | ~2017-05-27 | CO ---
Unit #: [id number] #: [id number] Patient: THIAGO GIBSON [id number] [address] [address] [id number] I MR#: [id number] NAME: THIAGO GIBSON ROOM: 339 Age: 56 Sex: M Admission Date: 05/27/2017 : 1960 Attending Physician: Sona Grey M.D. Primary Care Physician: Thiago Desai M.D. CONSULTATION REPORT REASON FOR CONSULTATION Hyponatremia. HISTORY OF PRESENT ILLNESS The patient is a 56-year-old white male with history of metastatic liver cancer, with primary, thought to be pancreatic versus lung cancer. He presents to emergency room with worsening dyspnea and abdominal distention. He has ascites and underwent paracentesis just one week ago on 05/20/2017 with removal of about 7 L of fluid. Fluid has quickly reaccumulated. His sodium is 122. He has chronic hyponatremia, for which we saw the patient during 02/2017 admission. Sodium was as low as 125. He was on hydrochlorothiazide several months ago, though this was stopped. Does report increased water consumption lately. He notes some nausea and vomiting, but denies any diarrhea. He does not appear to be on any loop diuretics at this time. He reports some improvement in his ankle swelling over the last several weeks. He did undergo paracentesis already today and notes improvement in his dyspnea. His renal function is normal. He is on chemotherapy currently, Tarceva. PAST MEDICAL HISTORY 1. Metastatic liver disease, primary pancreatic versus lung. 2. Chronic hyponatremia. 3. Ascites, status post recent large volume paracentesis, 05/20/2017. 4. Diabetes mellitus. 5. Hypertension. 6. History of chronic pancreatitis. 7. History of alcohol abuse. 8. History of hepatitis B. 9. Gastroesophageal reflux disease. 10. Chronic pain. PAST SURGICAL HISTORY 1. Cholecystectomy. 2. Biliary stents. SOCIAL HISTORY History of tobacco and alcohol abuse. Lives with his mother. FAMILY HISTORY Mother with breast cancer and father with malignancy of some type. HOME MEDICATIONS 1. Lovenox. 2. Tarceva. Unit #: [id number] #: [id number] Patient: THIAGO GIBSON 3. Zofran. 4. Norvasc 10 mg p.o. daily. 5. Duragesic patch. 6. Dilaudid. 7. Protonix 40 mg p.o. daily. REVIEW OF SYSTEMS GENERAL: Increased fatigue lately. No night sweats. HEENT: No vision changes, congestion, or dysphagia. CARDIOVASCULAR: No chest pain or palpitations. He did have profound lower extremity swelling in his ankles a few weeks ago, improved recently. RESPIRATORY: Shortness of breath present. No cough. GI: Nausea and vomiting present. No diarrhea. No melena. GENITOURINARY: No dysuria, hematuria, or hesitancy. MUSCULOSKELETAL: No joint pain, redness, or swelling. HEMATOLOGIC: No bruising or bleeding. PSYCHIATRIC: No anxiety or depression. ENDOCRINE: Type 2 diabetic and insulin dependent. No history of thyroid disease. MUSCULOSKELETAL: No joint warmth or swelling. NEUROLOGIC: No headaches, dizziness, seizures, or syncope. PHYSICAL EXAMINATION VITAL SIGNS: Temperature 98.2, blood pressure 126/82, heart rate 98, and respirations 15. GENERAL: The patient is a chronically ill-appearing white female, who looks much older than his age. No acute distress. He is alert. HEENT: Oropharynx is clear. Moist mucous membranes. Icterus present. NECK: Supple. No JVD. LUNGS: Clear to auscultation bilaterally. No rales or rhonchi. CARDIAC: Regular rate and rhythm. No murmurs. ABDOMEN: Soft, mildly nondistended, post paracentesis with some mild bilateral quadrant tenderness to palpation. No rebound or guarding. Bowel sounds present. VASCULAR: 1+ ankle edema, trace pedal edema in bilateral lower extremities. DERMATOLOGIC: Jaundiced. Venous stasis dermatitis of distal bilateral lower extremities. MUSCULOSKELETAL: No joint warmth or erythema. NEUROLOGIC: Oriented to person, place and time. Speech is normal. LABORATORY DATA WBC 17.7, hemoglobin 12.9, platelets 215. Sodium 122, potassium 4.5, chloride 87, bicarb 22, BUN 11, creatinine 0.6, glucose 138, calcium 8.6, AST 101, ALT 33, total bilirubin 11.1, albumin 2.4, lipase 42, BNP 48, INR 1.3. Chest x-ray, no active disease. ASSESSMENT 1. Hyponatremia, acute on chronic picture, appears hypervolemic on the basis of worsening ascites in association with cancer and metastatic liver. Could also have some degree of underlying paraneoplastic syndrome of inappropriate antidiuretic hormone. He has been off hydrochlorothiazide for several months. Reports increased water intake lately, though does not appear to be polydipsia range. 2. Metastatic liver disease, pancreatic versus lung primary. 3. Ascites, recurrent. Underwent large volume paracentesis on 05/20/2017, and fluid already reaccumulated, with repeat paracentesis today. Unit #: [id number] #: [id number] Patient: THIAGO GIBSON 4. Hypertension. Blood pressure is stable. 5. Hyperbilirubinemia. Diabetes mellitus type 2. Blood glucose is stable at 130 in the ER. 6. Dyspnea, likely related to ascites, improved already with paracentesis. Lungs are clear, no pulmonary edema or infiltrate on chest x-ray. PLAN 1. Fluid restrict, 1000 mL per day. 2. We will start oral Lasix and Aldactone. 3. Send urine, sodium and osmolality before starting diuretics. 4. Oncology to see. Thank you Dr. Grey for involving me in the patient's care. We will follow along. Dictated by... Thiago Mcduffie M.D. [facility]/marcel TD: 05/28/2017 14:37 JOB #: [id number] CONSULTATION REPORT Page 1 of 1 X X CONSULTATION REPORT
--- NOTE | ~2017-05-27 | EKG ---
PATIENT: THIAGO GIBSON UNIT #: [id number] Ventricular Rate: 100 BPM Atrial Rate: 100 BPM P-R Interval: 126 ms QRS Duration: 116 ms Q-T Interval: 368 ms QTC Calculation(Bezet): 474 ms P [place]: 27 degrees Calculated R [place]: -4 degrees Calculated T [place]: -18 degrees Diagnosis Line: Normal sinus rhythm Diagnosis Line: Right bundle branch block Diagnosis Line: Abnormal ECG Diagnosis Line: When compared with ECG of 17-FEB-2017 13:25, Diagnosis Line: No significant change was found Diagnosis Line: Confirmed by STEFANI LY MD ([id number]) on Diagnosis Line: 05/28/2017 4:03:16 PM INTERPRETING MD: ALIYAH LUND
--- NOTE | ~2017-05-27 | CR72 ---
[facility] A Service of [facility] RADIOLOGY TEXT RESULTS PATIENT: RACIEL GIBSON LOCATION: [facility] [address]6864-73 : 60 UNIT #: [id number] AGE: [address]: Sona Grey MD SEX: M ORDER DR: [id number] [facility] [address] [place], [place] [address] [id number] MR#: [id number] Acc #: [id number] NAME: RACIEL GIBSON : 1960 SEX: M STUDY DATE/TIME: 05/27/2017 10:39 UNIT: [facility] ROOM: STUDY DESCRIPTION: CR Chest Single View Portable Attending Physician: Russel Quan D.O. Ordering Physician: Russel Quan D.O. Primary Care Physician: Raciel Desai M.D. MEDICAL IMAGING REPORT This report is preliminary unless electronic signature is present EXAM Chest, portable, 05/27/2017, 1039 hours. CLINICAL HISTORY 56-year-old man complaining of 1-day history of shortness of air with lower extremity swelling. History of diabetes, hepatitis C. COMPARISON Chest CT 02/17/2017. FINDINGS Portable upright chest demonstrates normal cardiac, mediastinal, and hilar contours. The lungs appear clear. There is no effusion or pneumothorax. Lungs appear clear and unchanged from 02/17/2017, however, patient had a mass in the superior segment of the left lower lobe medially on 02/17/2017 which was not apparent on plain film. IMPRESSION No acute cardiopulmonary findings. Note that the mass in the superior segment left lower lobe seen on CT chest 02/17/2017 is not detectable on plain film today nor was not detectable on plain film on 02/17/2017. STAT * RESULT Dictated by... Qing Brown M.D. THIS IS AN ELECTRONICALLY VERIFIED REPORT Qing Brown M.D. at 05/27/2017 2:30 PM [facility]/stefania [facility]. [facility] A Service of [facility] RADIOLOGY TEXT RESULTS PATIENT: RACIEL GIBSON LOCATION: [facility] [address]85-19 : 60 UNIT #: [id number] AGE: [address]: Sona Grey MD SEX: M ORDER DR: TD: 05/27/2017 11:25 JOB #: [id number] MEDICAL IMAGING REPORT Page 1 of 1 COPY
--- NOTE | ~2017-05-27 | DS ---
Unit #: [id number] #: [id number] Patient: THIAGO GIBSON [id number] [address] [address] [id number] I MR#: [id number] NAME: THIAGO GIBSON ROOM: 339 Age: 56 Sex: M Admission Date: 05/27/2017 : 1960 Discharge Date: 05/28/2017 Attending Physician: Sona Grey M.D. Primary Care Physician: Thiago Desai M.D. DISCHARGE SUMMARY DATE OF TRANSFER TO HOSPICE CARE 05/28/2017. FINAL DIAGNOSES 1. Metastatic pancreatic cancer with liver metastasis, with very poor prognosis. 2. Ascites, status post paracentesis and removal of more than eight liters of fluid. 3. Abdominal pain secondary to the above. 4. Hypertension. 5. Diabetes mellitus type 2. 6. Hyponatremia. 7. Chronic pain. 8. History of alcohol abuse. CONSULTANTS Dr. Garcia from oncology services. Dr. Salgado from renal services. HOSPITAL COURSE Mr. Thiago Gibson is a 56-year-old male who was admitted with severe abdominal pain and shortness of breath. The patient was admitted to the telemetry unit. The patient had significant ascites. Interventional radiologist was consulted and the patient had more than eight liters of fluid removed. He is feeling much improved. The patient does continue to get recurrent ascites. The patient has a history of metastatic disease. The patient's prognosis is very poor. Dr. Garcia discussed the care with the patient and the patient has decided for DNR and Hospice care. Discussed with the patient and the patient's nephew, who is in the room, about the plan of care. He does verbalize understanding. Hospice is to take over the patient's care. The patient will continue Dilaudid 1-2 mg q.2-q.4 h. The patient is to continue to get paracenteses. The patient's code status is DNR. Diet is regular diet. Dictated by... Vivien Lawton Unit #: [id number] #: [id number] Patient: THIAGO GIBSON TD: 05/28/2017 14:56 JOB #: [id number] DISCHARGE SUMMARY Page 1 of 1 X Sona Grey MD DISCHARGE SUMMARY
--- NOTE | ~2017-05-27 | HP ---
Unit #: [id number] #: [id number] Patient: THIAGO GIBSON [id number] [address] [address] [id number] I MR#: [id number] NAME: THIAGO GIBSON ROOM: 49314 Age: 56 Sex: M Admission Date: 05/27/2017 : 1960 Attending Physician: Sona Grey M.D. Primary Care Physician: Thiago Desai M.D. HISTORY AND PHYSICAL CHIEF COMPLAINT Abdominal pain and shortness of breath. HISTORY OF PRESENT ILLNESS Mr. Thiago Gibson is a 56-year-old male who has been diagnosed with metastatic liver cancer. Primary is pancreatic versus lung and portal vein thrombosis. He came in because of shortness of breath. The patient does have ascites and had fluid removed just recently on 05/20/2017. At that time about 7.4 liters of serous material was removed. The patient again started having shortness of breath and could not ambulate, could not get up. EMS was called and he was brought to the emergency room. The patient lives with his mother, who is in her 80s and really cannot help him much. He is complaining of abdominal pain. According to him, he ran out of his Duragesic patch and has had difficulty getting them. His pain level is 10/10. He does not complain of cough. He does not complain of chest pain or any sputum production. No complaint of fever, chills or rigors. PAST MEDICAL HISTORY 1. History of metastatic liver disease. Primary is pancreatic versus lung. 2. Chronic hyponatremia. 3. Hypertension. 4. Diabetes mellitus. 5. History of chronic pancreatitis. 6. History of alcohol abuse. 7. History of hepatitis B. PAST SURGICAL HISTORY 1. History of cholecystectomy. 2. History of stent placement. SOCIAL HISTORY The patient has a history of smoking and alcohol abuse. He lives with his mother, who is in her 80s. He does not complain of any IV drug abuse. FAMILY HISTORY Significant family history of malignancy. Mother had breast cancer. Father had malignancy. Primary not known. HOME MEDICATIONS 1. Lovenox subcutaneous q.12 h. 2. Tarceva 20 units subcutaneous at bedtime. 3. Zofran 1-2 tablets t.i.d. p.r.n. Unit #: [id number] #: [id number] Patient: THIAGO GIBSON 4. Norvasc 10 mg daily. 5. Duragesic 100 mcg q.72 h. 6. Dilaudid 1-2 tablets q.4 h. p.r.n. 7. Protonix 40 mg daily. REVIEW OF SYSTEMS As per history of present illness. He is feeling very fatigued and tired, most of the time short of breath. He is not able to ambulate because of the pain and shortness of breath. He had a paracentesis done recently on 05/20/2017, but according to him it filled up again. No complaint of fever, chills or rigors. No complaint of syncopal episode. The rest is as per history of present illness. PHYSICAL EXAMINATION GENERAL: The patient is being evaluated in the emergency room, room 10. VITALS: Blood pressure 126/82, respiratory rate 15, pulse 98, temperature 98.2. HEENT: Head is normocephalic. Eye movements are normal. Pale conjunctivae. NECK: Supple. CHEST: Fair air entry. Decreased at the bases. HEART: Regular rhythm. Tachycardia. ABDOMEN: Distended. Bowel sounds are positive. EXTREMITIES: Bilateral lower extremity edema is present. NEUROLOGIC: The patient is awake, alert and oriented times three. No focal neurological deficits. DIAGNOSTIC STUDIES LABORATORY: Troponin is less than 0.05. PT/INR is 14.3 and 1.3. Sodium 122, potassium 4.5, chloride 87, alkaline phosphatase 563, total bilirubin 11.1, direct bilirubin 6.4, lipase 42. BNP 48, white blood cell count 7.7, hemoglobin 12.9, hematocrit 38.3, platelet count 215. ASSESSMENT The patient is being admitted to the telemetry unit with 1. Dyspnea. 2. Recurrent ascites. 3. Metastatic liver cancer with primary pancreatic versus lung. 4. Portal vein thrombosis. 5. Abdominal pain, secondary to ascites most probably. 6. Hyponatremia. 7. Diabetes mellitus. PLAN Admit to the telemetry unit. Home medications have been reviewed and adjusted. IV pain medications will be started. Accu-Cheks morning and evening with insulin sliding scale will be started. Lovenox will be continued. IV Protonix 40 mg daily has been started. CT scan of the chest is being done to rule out any pulmonary embolism. Dr. Garcia will be consulted. Dr. Delcid will be consulted for hyponatremia, although it is kind of chronic. The patient's prognosis is guarded. Dictated by Vivien Lawton Unit #: [id number] #: [id number] Patient: THIAGO GIBSON TD: 05/27/2017 14:33 JOB #: [id number] HISTORY AND PHYSICAL Page 1 of 1 X Sona Grey MD X HISTORY AND PHYSICAL
--- NOTE | ~2017-05-27 | XA170 ---
[facility] A Service [facility] RADIOLOGY TEXT RESULTS PATIENT: RACIEL GIBSON LOCATION: [facility] 339-01 : 60 UNIT #: [id number] AGE: [address]: Sona Grey MD SEX: M ORDER DR: [id number] [facility]. [place], [place] [address] [id number] MR#: [id number] Acc #: [id number] NAME: RACIEL GIBSON : 1960 SEX: M STUDY DATE/TIME: 05/27/2017 14:22 UNIT: [address] ROOM: [facility] STUDY DESCRIPTION: XA Paracentesis W Image Attending Physician: Sona Grey M.D. Ordering Physician: Sona Grey M.D. Primary Care Physician: Raciel Desai M.D. MEDICAL IMAGING REPORT This report is preliminary unless electronic signature is present EXAM Ultrasound-guided paracentesis INDICATIONS Recurrent ascites. Risks, benefits and alternative to the procedure were discussed with the patient and informed consent was obtained. In the procedure room a time-out was performed confirming correct patient and procedure. All elements of maximum sterile-barrier technique utilized according guidelines appropriate for the procedure. TECHNIQUE/FINDINGS Ultrasound of the right abdomen was performed demonstrating a large amount of ascites. The overlying skin was prepped and draped in the usual sterile fashion. 1% lidocaine was utilized to anesthetize the skin and underlying subcutaneous tissues. Next, under ultrasound guidance a 5-Nepalese Yueh catheter was inserted into the peritoneal space of the right side of the abdomen and 8200 mL of fluid was removed. Needle was removed and a sterile dressing was applied. No immediate complications. IMPRESSION Technically successful ultrasound-guided paracentesis. Dictated by... Po Faria M.D. THIS IS AN ELECTRONICALLY VERIFIED REPORT Po Faria M.D. at 05/29/2017 7:44 AM RASHAUN/zeus [facility] A Service [facility] RADIOLOGY TEXT RESULTS PATIENT: RACIEL GIBSON LOCATION: [facility] 339-01 : [birth year] UNIT #: [id number] AGE: [address]: Sona Grey MD SEX: M ORDER DR: TD: 05/28/2017 08:31 JOB #: [id number] MEDICAL IMAGING REPORT Page 1 of 1 COPY
[~2017-05-27 09:28] MED LIST changes: -DILAUDID4 MG PO; -ENOXAPARIN60 MG/0.1 SUBQ; -PATIENT'S PHARMACY; -TRESIBA FL100 UNIT/1 SUBQ; -ZOFRAN PO
[2017-05-27 10:57] LABS: POC - CKMB 2.6 ng/mL (0.0-7.9); POC - TROPONIN <0.05 ng/mL (<=0.05)
[2017-05-27 11:05] LABS: INR 1.3; PARTIAL THROMBOPLASTIN TIME 35.3 SECONDS (23.5-31.3); PROTHROMBIN TIME (PATIENT) 14.3 SECONDS (10.0-11.7)
[2017-05-27 11:30] LABS: ALBUMIN SERUM 2.4 g/dL (3.5-5.0); BILIRUBIN, DIRECT 6.4 mg/dL (0.0-0.2); BILIRUBIN,INDIRECT 4.7 mg/dL (0.0-0.9); BILIRUBIN,TOTAL 11.1 mg/dL (0.2-2.0); BUN/CREATININE RATIO 18.33; CALCIUM SERUM 8.6 mg/dL (8.4-10.2); CREATININE SERUM 0.6 mg/dL (0.6-1.4); GLOM FILT RATE Estimated 112.4 mL/min (>60); POTASSIUM 4.5 mmol/L (3.5-5.1); PROTEIN TOTAL SERUM 6.2 g/dL (6.0-8.3)
[2017-05-27 11:47] LABS: BASOPHIL# 0.1 X10e3 (0-0.3); BASOPHIL% 0.3 % (0-2.5); EOSINOPHIL# 0.1 X10e3 (0-0.7); EOSINOPHIL% 0.4 % (0.0-7.0); HEMATOCRIT 38.3 % (38.0-50.0); HEMOGLOBIN 12.9 gm/dL (13.0-16.0); LYMPHOCYTE# 2.8 X10e3 (1.0-3.5); LYMPHOCYTE% 15.8 % (17.0-45.0); MEAN CELL VOLUME 89.6 FL (83-96); MEAN CORPUSCULAR HEMOGLOBIN 30.2 PG (28-34); MEAN CORPUSCULAR HGB CONC 33.7 g/dL (30-36); MEAN PLATELET VOLUME 7.4 FL (6.5-11.5); MONOCYTE# 0.5 X10e3 (0-1.0); MONOCYTE% 2.7 % (3.0-12.0); NEUTROPHIL# 14.3 X10e3 (1.5-7.1); NEUTROPHIL% 80.8 % (40-75); PLATELET COUNT 215 X10e3 (140-420); RED BLOOD COUNT 4.28 X10e (3.90-5.60); RED CELL DISTRIBUTION WIDTH 18.7 % (11.0-15.5); WHITE BLOOD COUNT 17.7 X10e3 (4.0-10.5)
[2017-05-27] MEDS ORDERED: PATIENT'S PHARMACY (12:11)
[2017-05-27] MEDS ORDERED: TRESIBA FL100 UNIT/1 SUBQ (12:12)
[2017-05-27] MEDS ORDERED: ENOXAPARIN60 MG/0.1 SUBQ (12:12)
[2017-05-27] MEDS ORDERED: ZOFRAN PO (12:12)
[2017-05-27] MEDS ORDERED: NORVASC10 MG PO (12:13)
[2017-05-27] MEDS ORDERED: DURAGESIC1 EAC1 TD (12:13)
[2017-05-27] MEDS ORDERED: PROTONIX PO (12:20)
[2017-05-27] MEDS ORDERED: DILAUDID4 MG PO (12:20)
[2017-05-27 12:22] LABS: POC - CKMB 1.4 ng/mL (0.0-7.9); POC - TROPONIN <0.05 ng/mL (<=0.05)
[2017-05-27 13:03] LABS: DIFF IND YES
[2017-05-27 13:08] LABS: PLATELET ESTIMATE NORMAL (NORMAL)
[2017-05-27 13:09] LABS: ANISOCYTOSIS SL; TARGET CELLS SL; TEAR DROP CELLS PRESENT
[2017-05-27 16:31] LABS: SODIUM URINE RANDOM <10 mmol/L
[2017-05-27 16:51] LABS: OSMOLALITY,URINE 384 mOsmo/kg (250-900)
[2017-05-28 06:58] LABS: HEMATOCRIT 34.6 % (38.0-50.0); HEMOGLOBIN 11.6 gm/dL (13.0-16.0); MEAN CELL VOLUME 89.5 FL (83-96); MEAN CORPUSCULAR HEMOGLOBIN 30.2 PG (28-34); MEAN CORPUSCULAR HGB CONC 33.7 g/dL (30-36); RED BLOOD COUNT 3.86 X10e (3.90-5.60); WHITE BLOOD COUNT 16.7 X10e3 (4.0-10.5)
[2017-05-28 07:26] LABS: BILIRUBIN,TOTAL 9.2 mg/dL (0.2-2.0); BUN/CREATININE RATIO 18.33; CALCIUM SERUM 8.1 mg/dL (8.4-10.2); CREATININE SERUM 0.6 mg/dL (0.6-1.4); GLOM FILT RATE Estimated 112.4 mL/min (>60); POTASSIUM 4.3 mmol/L (3.5-5.1); PROTEIN TOTAL SERUM 5.2 g/dL (6.0-8.3); URIC ACID 2.3 mg/dL (2.6-7.2)
== END 2017-05-28 14:08 | DRG 947 ==
LOC: CED 09:28 → CEDOF 12:40 → CED 13:20 → C3A PCU 13:20 → CEDOF 13:20 → C3A PCU 16:25
PROVIDERS: Emergency Medicine; Physician Assistant Medical
PROC: 0W9G30Z Drainage of Peritoneal Cavity with Drainage Device, Percutaneous Approach (ICD-10-PCS; principal; 2017-05-27)
PROC: B32TYZZ Computerized Tomography (CT Scan) of Left Pulmonary Artery using Other Contrast (ICD-10-PCS; 2017-05-27)
PROC: B32SYZZ Computerized Tomography (CT Scan) of Right Pulmonary Artery using Other Contrast (ICD-10-PCS; 2017-05-27)
DX: R18.8 Other ascites (principal); I81 Portal vein thrombosis; R64 Cachexia; C78.7 Secondary malignant neoplasm of liver and intrahepatic bile duct; E87.1 Hypo-osmolality and hyponatremia; E11.44 Type 2 diabetes mellitus with diabetic amyotrophy; C25.9 Malignant neoplasm of pancreas, unspecified; I10 Essential (primary) hypertension; K21.9 Gastro-esophageal reflux disease without esophagitis; Z87.891 Personal history of nicotine dependence; G89.29 Other chronic pain; Z90.49 Acquired absence of other specified parts of digestive tract; E80.6 Other disorders of bilirubin metabolism; Z66 Do not resuscitate; Z68.23 Body mass index [BMI] 23.0-23.9, adult
CPT/HCPCS: 36415; 71010; 71275; 80048; 80053; 80076; 82553; 82947; 83690; 83880; 83935; 84300; 84484; 84550; 85025; 85027; 85610; 85730; 93005; 96374; 96375; 99285; C9113; J1170; J1650; J1815; J2405; J2543; Q9967

== ENCOUNTER 2017-05-28 14:09 | Inpatient (IN) | payer OTHER ==
--- NOTE | ~2017-05-28 | CO ---
Unit #: [id number] #: [id number] Patient: RACIEL GIBSON [id number] [address] [place], [place] [address] [id number] MR#: [id number] NAME: RACIEL GIBSON ROOM: 339 Age: 56 Sex: M Admission Date: 05/28/2017 : 1960 Attending Physician: Sona Grey M.D. Primary Care Physician: Raciel Desai M.D. Consultation Date: 05/28/2017 CONSULTATION REPORT REASON FOR CONSULTATION Metastatic pancreatic cancer. Admitted for nausea, vomiting, abdominal pain, and shortness of breathing. HISTORY OF PRESENT ILLNESS Mr. Raciel Gibson is a 56-year-old with diagnosis of metastatic pancreatobiliary cancer originally diagnosed on 01/30/2017 with subsequently portal venous thrombosis in the first week of February. He subsequently received palliative chemotherapy, but over the past month has had progressive disease with large volume malignant ascites, progressive weight loss, and he was seen in the office 2 weeks ago and underwent a large volume paracentesis with removal of 8 L of fluid. Postparacentesis, his abdominal discomfort did improve, but he continued to have a poor appetite. I did not return back for followup of his CAT scans, which showed progressive disease. At this time, he tells me that his abdomen feels uncomfortable. He continues to remain in constant pain, requiring intravenous pain medications with continued poor appetite. PAST MEDICAL HISTORY Metastatic liver disease from a presumed pancreatobiliary primary as discussed. Other medical, positive type 2 diabetes mellitus, hypertension, history of alcohol abuse in the past. Now sober for 4 years and history of pancreatitis. FAMILY HISTORY Notable for breast cancer in mother, who also had lymphoma. SOCIAL HISTORY Used to smoke between pack to pack and half a day. Sober for the past 4 years. Lives with his mother. He has 2 brothers. REVIEW OF SYSTEMS Fourteen point review of systems was taken. CONSTITUTIONAL: As discussed above. EYES: Negative. EARS, NOSE, MOUTH, AND THROAT: Negative. CARDIOVASCULAR: No chest pain, palpitation. RESPIRATORY: Shortness of breathing. No cough or hemoptysis. GASTROINTESTINAL: Abdominal discomfort. GENITOURINARY: Negative. NEUROLOGIC: Negative. ALLERGIC/LYMPHATIC: Negative. SKIN: Yellowish. Unit #: [id number] #: [id number] Patient: RACIEL GIBSON PSYCHIATRIC: Negative. PHYSICAL EXAMINATION GENERAL: He is a thin cachectic middle-aged man, who looks older than his stated age. He is visibly jaundiced. VITAL SIGNS: Temperature is 97.2, pulse rate is 88, respirations 19, blood pressure 119/58. HEENT: Shows icterus. Mild pallor. Mucous membranes are dry. NECK: Without JVD, thyromegaly. CARDIOVASCULAR: First and second heart sounds are heard and regular. LUNGS: Chest expansion is symmetric. Bilateral air entry. ABDOMEN: Distended. However not with tense ascites noted previously. There was easily palpable 6 inches at the costal margin. EXTREMITIES: Warm with 1+ edema. NEUROLOGIC: On examination, he is awake, alert, and oriented x3 without any focal findings. PSYCHIATRIC: Flat affect. SKIN: Jaundiced. LYMPHATIC: Negative. DIAGNOSTIC STUDIES LABORATORY RESULTS: Negative. CBC with white count of 16,700, hemoglobin 11.6, platelet count is 181,000. Chemistry shows sodium of 122, BUN is 11, creatinine is 0.6. AST is 97, ALT is 28, alkaline phosphatase 459, and bilirubin is 9.2. IMAGING STUDIES: CT angio of the chest shows no evidence of pulmonary embolism and multiple metastatic lesions which are the liver unchanged from previously. ASSESSMENT AND PLAN Mr. Raciel Gibson is 56-year-old with far advanced metastatic cancer to the liver from presumed pancreatic biliary primary. At this point, he is deeply jaundiced and cachectic along with malignant ascites. I discussed the situation with him and the poor prognosis. We will plan to get Interventional Radiology to do an additional paracentesis given his abdominal discomfort. I will increase his pain medications with Dilaudid 1 to 2 mg every 2 hours as necessary and add artificial saliva to improve his mouth dryness along with Mihaela's Magic mouthwash. I recommended hospice and we discussed services and he agreed. I also discussed about code status and after discussion, he wishes to be do not resuscitate. Thank you for allowing me to participate in his care. Dictated by... Karl Garcia M.D. LANCE/shira TD: 05/30/2017 02:17 JOB #: [id number] Unit #: [id number] #: [id number] Patient: RACIEL GIBSON CONSULTATION REPORT Page 1 of 1 X Karl Garcia MD CONSULTATION REPORT
[~2017-05-28 14:09] MED LIST changes: +DILAUDID4 MG PO; +ENOXAPARIN60 MG/0.1 SUBQ; +PATIENT'S PHARMACY; +TRESIBA FL100 UNIT/1 SUBQ; +ZOFRAN PO
== END 2017-05-29 14:52 | DRG 640 ==
LOC: C3A PCU 14:09
DX: E87.1 Hypo-osmolality and hyponatremia (principal); I81 Portal vein thrombosis; C25.9 Malignant neoplasm of pancreas, unspecified; C78.7 Secondary malignant neoplasm of liver and intrahepatic bile duct; R18.8 Other ascites; C34.90 Malignant neoplasm of unspecified part of unspecified bronchus or lung; R06.00 Dyspnea, unspecified; Z51.5 Encounter for palliative care; Z66 Do not resuscitate; E16.2 Hypoglycemia, unspecified; I10 Essential (primary) hypertension; E11.9 Type 2 diabetes mellitus without complications; Z86.19 Personal history of other infectious and parasitic diseases; Z87.891 Personal history of nicotine dependence; Z90.49 Acquired absence of other specified parts of digestive tract; Z80.3 Family history of malignant neoplasm of breast; Z80.9 Family history of malignant neoplasm, unspecified
CPT/HCPCS: 82947; J1170; J2060